=== PATIENT | female | born 1975 | race Caucasian/White ===

== ENCOUNTER 2021-07-02 15:02 | Inpatient (IN) ==
[2021-07-02] MEDS ORDERED: 0.9 % SODIUM CHLORIDE 1,000 ML IV ONE (16:07)
[2021-07-02 16:29] LABS: Appearance,Urine HAZY (Clear); Bacteria,Urine FEW /hpf (0); Bilirubin,Urine Negative (Negative); Color,Urine YELLOW; Culture Indicated,Urine yes; Glucose,Urine (UA) Negative (Negative); Ketones,Urine Negative (Negative); Leukocyte Esterase,Urine 25 /uL (Negative); Mucus,Urine FEW /hpf; Nitrate,Urine POS (Negative); Protein,Urine Negative (Negative); Specific Gravity,Urine 1.011 (1.000-1.035); Urine Hyaline Cast 12 /lph (0-2); Urine RBC 70 /hpf (0-3); Urine Squamous Epithelial Cell 2 /hpf (0-4); Urine WBC 33 /hpf (0-4); Urobilinogen,Urine Negative
[2021-07-02] MEDS ORDERED: PIPERACILLIN SODIUM/TAZOBACTAM 4.5 GM in DEXTROSE 5% IN WATER 50 ML IV ONE (17:00)
--- NOTE | 2021-07-02 17:47 | Emergency Department Note ---
HPI General Chief complaint: Weakness Stated complaint: lethergy, diaphoretic Time Seen by Provider: 07/02/21 16:54 Source: EMS Mode of arrival: EMS Limitations: altered mental status History of Present Illness HPI Narrative: Narrative: 45-year-old female with history of cerebral palsy presents for evaluation of lethargy from group home facility, reported onset today. No reported vital sign abnormalities. Patient is able to speak but minimally able to provide history. She does admit to urinary frequency. She denies chest pain or pressure or shortness of breath. She denies abdominal pain nausea or vomiting. She has mostly bedbound but by report normally alert oriented and overall well- appearing Related Data Home Medications Medication Instructions Recorded Confirmed fluticasone propionate 50 See Dose Instructions INTRANASAL 05/01/15 12/27/20 mcg/actuation nasal .COMPLEX g spray,suspension ibuprofen 800 mg tablet 800 mg PO .COMPLEX tab 05/01/15 12/27/20 omeprazole 20 mg capsule,delayed 20 mg PO QDAY cap 05/01/15 12/27/20 release ascorbate calcium (vitamin C) 500 500 mg PO QDAY 04/18/19 12/27/20 mg tablet cyclobenzaprine 5 mg tablet 5 mg PO QDAY tab 04/18/19 12/27/20 docusate sodium 100 mg capsule 100 mg PO BID 04/18/19 12/27/20 folic acid 800 mcg tablet 0.8 mg PO QDAY 04/18/19 12/27/20 lithium carbonate 300 mg 300 mg PO BID tab 04/18/19 12/27/20 tablet,extended release lubiprostone 24 mcg capsule 24 mcg PO BID 04/18/19 12/27/20 magnesium oxide 400 mg (241.3 mg 400 mg PO QDAY tab 04/18/19 12/27/20 magnesium) tablet meclizine 25 mg tablet 25 mg PO QDAY PRN 04/18/19 12/27/20 ondansetron 4 mg disintegrating 4 mg PO ONCE tab 04/18/19 12/27/20 tablet oxybutynin chloride 10 mg 10 mg PO QDAY 04/18/19 12/27/20 tablet,extended release 24 hr potassium chloride 20 mEq 20 meq PO QDAY 04/18/19 12/27/20 tablet,extended release pyridoxine (vitamin B6) PO 04/18/19 12/27/20 sennosides 8.6 mg tablet 8.6 mg PO ONCE PRN tab 04/18/19 12/27/20 sumatriptan succinate 50 mg tablet 50 mg PO ONCE PRN tab 04/18/19 12/27/20 topiramate 50 mg tablet 50 mg PO BID 04/18/19 12/27/20 torsemide 20 mg tablet 20 mg PO QDAY 04/18/19 12/27/20 zinc 50 mg tablet 50 mg PO QDAY 04/18/19 12/27/20 clonazepam 2 mg tablet 2 mg PO TID 05/17/19 12/27/20 levothyroxine 200 mcg capsule 200 mcg PO QDAY 05/17/19 12/27/20 oxycodone 10 mg tablet 10 mg PO QID tab 05/17/19 12/27/20 oxycodone 5 mg capsule 5 mg PO QDAY PRN cap 05/17/19 12/27/20 pregabalin 150 mg capsule 150 mg PO BID 05/17/19 12/27/20 quetiapine 400 mg tablet 400 mg PO QHS tab 05/17/19 12/27/20 Previous Rx's Medication Instructions Recorded fluoxetine 10 mg capsule 10 mg PO QPM #30 cap 06/21/19 fluoxetine 20 mg capsule 20 mg PO QAM #30 cap 06/21/19 Allergies Allergy/AdvReac Type Severity Reaction Status Date / Time adhesive tape Allergy Unknown Verified 11/27/19 15:36 baclofen Allergy Unknown Verified 11/27/19 15:36 ceftriaxone [From Rocephin] Allergy Unknown Verified 11/27/19 15:36 cefuroxime Allergy Unknown Unknown Verified 11/27/19 15:36 Erythromycin Base Allergy Unknown Unknown Verified 11/27/19 15:36 lidocaine Allergy Unknown Unknown Verified 11/27/19 15:36 methadone Allergy Unknown Verified 11/27/19 15:36 methocarbamol Allergy Unknown Unknown Verified 11/27/19 15:36 midazolam [From Versed] Allergy Unknown Verified 11/27/19 15:36 morphine Allergy Unknown Unknown Verified 11/27/19 15:36 risperidone [From Risperdal] Allergy Unknown Verified 11/27/19 15:36 Review of Systems ROS ROS Narrative: Narrative: Limitations: ROS unobtainable due to patients medical condition PFSH Narrative Patient History Narrative: Narrative: Medical/Surgical/Family History All Active Problems (Updated 07/02/21 @ 17:47 by Mamadou Anguiano DO) Urinary tract infection (Acute) Constipation (Chronic) Functional dyspepsia (Chronic) Amblyopia (Chronic) Migraine (Chronic) Personality disorder (Chronic) Panic disorder (Chronic) Major depressive disorder (Chronic) Anemia (Chronic) Pleurisy (Chronic) Open wound of left thigh (Chronic) Open wound of buttock (Chronic) Hypoxemia (Chronic) Low back pain (Chronic) Other streptococcus as the cause of diseases classified elsewhere (Chronic) Narcissistic personality disorder (Chronic) Anhedonia (Chronic) Pure hypercholesterolemia (Chronic) Bipolar disorder (Chronic) Noninfective gastroenteritis and colitis, unspecified (Chronic) Somatoform disorder, unspecified (Chronic) Adverse effect of other opioids, subsequent encounter (Chronic) Morbid obesity due to excess calories (Chronic) Cerebral palsy, unspecified (Chronic) Daytime sleepiness (Chronic) Laceration of left leg (Chronic) Vertigo (Chronic) Borderline personality disorder (Chronic) Somatic symptom disorder (Chronic) Fibromyalgia (Chronic) Dependence on wheelchair (Chronic) History of falling (Chronic) Edema (Chronic) Malaise and fatigue (Chronic) Chronic fatigue (Chronic) Dizziness and giddiness (Chronic) Spasm of muscle (Chronic) Pilonidal cyst without abscess (Chronic) Other injury of unspecified body region, initial encounter (Chronic) Contusion of shoulder (Chronic) Open wound (Chronic) Urination frequency (Chronic) Retention of urine (Chronic) Nausea and vomiting (Chronic) Irregular menstruation (Chronic) Calculus of gallbladder (Chronic) Upper respiratory infection (Chronic) Chronic rhinitis (Chronic) Pain in throat (Chronic) Sepsis (Chronic) Acute cholecystitis (Chronic) Ankle pain, right (Chronic) Knee pain, right (Chronic) Urinary incontinence (Chronic) Tobacco abuse (Chronic) Disorder of thyroid (Chronic) Muscle ache (Chronic) Migraine (Chronic) Insomnia (Chronic) Hyperthyroidism (Chronic) Hypertension, essential (Chronic) Heartburn (Chronic) Bursitis, trochanteric (Chronic 02/14/15) Fatigue (Chronic) Depressive disorder (Chronic) 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) Camarillo's palsy (Chronic) Arthritis (Chronic) Anxiety disorder (Chronic) Acid reflux (Chronic) Medical History (Updated 07/02/21 @ 17:47 by Mamadou Anguiano DO) Acid reflux Acute cholecystitis Adverse effect of other opioids, subsequent encounter Amblyopia Anemia Anhedonia Ankle pain, right Anxiety disorder Arthritis Camarillo's palsy infantile Bipolar disorder Borderline personality disorder Bursitis, trochanteric (02/14/15) Calculus of gallbladder Cerebral palsy, unspecified Chronic fatigue Chronic rhinitis Constipation Contusion of shoulder Daytime sleepiness Dependence on wheelchair Depressive disorder Disorder of thyroid Dizziness and giddiness Edema Fatigue Fibromyalgia Functional dyspepsia Heartburn History of falling Hypertension, essential Hyperthyroidism Hypoxemia Infantile cerebral palsy (02/14/15) Insomnia Irregular menstruation Knee pain, right Low back pain Major depressive disorder Malaise and fatigue Migraine Migraine Morbid obesity due to excess calories Muscle ache Narcissistic personality disorder Nausea and vomiting Noninfective gastroenteritis and colitis, unspecified Open wound Open wound of buttock Open wound of left thigh Other injury of unspecified body region, initial encounter Other streptococcus as the cause of diseases classified elsewhere Pain in throat Panic disorder Personality disorder Pilonidal cyst without abscess Pleurisy Pure hypercholesterolemia Retention of urine Sepsis Somatic symptom disorder Somatoform disorder, unspecified Spasm of muscle Tobacco abuse Upper respiratory infection Urinary incontinence Urination frequency Vertigo Surgical History No pertinent past surgical history Family History Mother Dementia Family history of malignant neoplasm Family history of arthritis Essential hypertension Acute myocardial infarction Father Acute myocardial infarction Social History Smoking Status: Current some day smoker Alcohol Intake Frequency: does not drink Substance Use: former substance user and marijuana Exam Narrative Narrative: Narrative: General Limitations: altered mental status General appearance: Present alert Head Head: Present atraumatic and normocephalic Eye Eye: Present normal appearance and EOMI ENT ENT: Present normal exam and mucous membranes dry Neck Neck: Present normal inspection and full ROM (Within the limitations of contracture with slight right sided preference) Chest Chest: Present normal inspection and symmetric chest wall rise Respiratory Respiratory: Present normal lung sounds bilaterally Cardiovascular Cardiovascular: Present regular rate and normal rhythm Adbominal Abdominal: Present soft; Absent tenderness Extremities Extremities: Present normal inspection; Absent full ROM (Limited range of motion but patient reports that this is chronic) Neurological Neurological: Present alert; Absent oriented X3 (Oriented to person and place) Psychiatric Psychiatric: Present normal affect, normal mood and poor eye contact Skin Skin: Present warm (WNL) and dry Course Vital Signs Vital signs: Vital Signs Temperature 97.9 F 07/02/21 15:03 Pulse Rate 84 07/02/21 15:03 Respiratory Rate 20 07/02/21 15:03 Blood Pressure 121/73 07/02/21 15:03 Pulse Oximetry (%) 94 07/02/21 15:03 Temperature 97.9 F 07/02/21 15:03 Pulse Rate 78 07/02/21 17:16 Respiratory Rate 17 07/02/21 17:16 Blood Pressure 124/70 07/02/21 17:16 Pulse Oximetry (%) 99 07/02/21 17:16 MDM MDM Narrative Medical decision making narrative: Narrative: Patient with slightly decreased mental status from her baseline, nonfocal, overall consistent with urinary tract infection and patient does endorse symptoms although appears to be a somewhat unreliable historian at this time. She was given IV antibiotics, based on culture from about 3 months ago with limited sensitivities and cephalosporin allergy, she was given Zosyn. Urine culture was sent.Plan was made to admit for further care Lab Data Labs: Lab Results 07/02/21 Range/Units 15:25 Urine Color Yellow Urine Appearance Hazy A (Clear) Urine pH 5.0 (5.0-9.0) Ur Specific [place] 1.011 (1.000-1.035) Urine Protein Negative (Negative) mg/dL Urine Glucose (UA) Negative (Negative) mg/dL Urine Ketones Negative (Negative) mg/dL Urine Occult Blood 0.20 (Negative) mg/dL Urine Nitrate Pos A (Negative) Urine Bilirubin Negative (Negative) mg/dL Urine Urobilinogen Negative mg/dL Ur Leukocyte Esterase 25 A (Negative) /uL Urine RBC 70 H (0-3) /hpf Urine WBC 33 H (0-4) /hpf Ur Squamous Epith Cells 2 (0-4) /hpf Urine Bacteria Few A (0) /hpf Hyaline Casts 12 H (0-2) /lph Urine Mucus Few A (None) /hpf Ur Culture Indicated? yes Discharge Plan Patient/Caregiver Discharge Instructions Pt seen by [facility]ANCH[facility] MANAGER/PA only: No Clinical Impression: Urinary tract infection Patient Disposition: [facility] Follow up with: Brad Beasley MD [Primary Care Provider] - Prescriptions: No Action levothyroxine 200 mcg capsule 200 mcg PO QDAY RF: 0 oxycodone 10 mg tablet 10 mg PO QID RF: 0 oxycodone 5 mg capsule 5 mg PO QDAY PRNRF: 0 quetiapine 400 mg tablet 400 mg PO QHS RF: 0 pregabalin [Lyrica] 150 mg capsule 150 mg PO BID RF: 0 clonazepam 2 mg tablet 2 mg PO TID RF: 0 fluoxetine [Prozac] 10 mg capsule 10 mg PO QPM Qty: 30 RF: 0 fluoxetine 20 mg capsule 20 mg PO QAM Qty: 30 RF: 0 ibuprofen 800 mg tablet 800 mg PO .COMPLEX RF: 0 omeprazole 20 mg capsule,delayed release(DR/EC) 20 mg PO QDAY RF: 0 fluticasone propionate 50 mcg/actuation spray,suspension See Dose Instructions mcg INTRANASAL .COMPLEX RF: 0 Amitiza 24 mcg capsule 24 mcg PO BID RF: 0 cyclobenzaprine 5 mg tablet 5 mg PO QDAY RF: 0 docusate sodium 100 mg capsule 100 mg PO BID RF: 0 folic acid 800 mcg tablet 0.8 mg PO QDAY RF: 0 lithium carbonate 300 mg tablet extended release 300 mg PO BID RF: 0 magnesium oxide [MagOx] 400 mg (241.3 mg magnesium) tablet 400 mg PO QDAY RF: 0 meclizine 25 mg tablet 25 mg PO QDAY PRNRF: 0 ondansetron 4 mg tablet,disintegrating 4 mg PO ONCE RF: 0 oxybutynin chloride 10 mg tablet extended release 24hr 10 mg PO QDAY RF: 0 potassium chloride 20 mEq tablet extended release 20 meq PO QDAY RF: 0 pyridoxine (vitamin B6) PO RF: 0 sennosides [senna] 8.6 mg tablet 8.6 mg PO ONCE PRNRF: 0 sumatriptan succinate 50 mg tablet 50 mg PO ONCE PRNRF: 0 topiramate 50 mg tablet 50 mg PO BID RF: 0 torsemide 20 mg tablet 20 mg PO QDAY RF: 0 ascorbate calcium (vitamin C) 500 mg tablet 500 mg PO QDAY RF: 0 zinc 50 mg tablet 50 mg PO QDAY RF: 0
[2021-07-02] MEDS ORDERED: MECLIZINE 25 MG PO PRN (18:43)
[2021-07-02] MEDS ORDERED: SENNOSIDES 1 TABLET PO PRN ×2 (18:43→20:25)
[2021-07-02] MEDS ORDERED: SUMAtriptan SUCCINATE 50 MG TABLET PO PRN ×2 (18:43→20:25)
[2021-07-02] MEDS ORDERED: IBUPROFEN 800 MG TABLET PO SCH (18:45)
--- NOTE | 2021-07-02 18:56 | Internal Med History&Physical ---
HPI History of Present Illness Patient information: Note initiated : 07/02/21 at 6:49 pm Service Date, if different from initiated Date: [] Patient: Galina Solorzano a 45 y/o F admitted on for lethergy, diaphoretic. Chief Complaint: [UTI] History of present illness: Ms. Solorzano is a 45 year old F history of cerebral palsy, hypothyroidism, recurrent UTI, presenting with 1 day history of lethargy. Last episode of urinary tract infection was about a month ago. Patient is a [facility] resident and today she was noted by the nursing staff to be lethargic and she was being sent to our ED for further evaluations. Vital signs upon ED presentations were within normal limits. CBC and CMP pending. Urinalysis suggest the presence of urinary tract infections. Rest of the history is limited by the patient's clinical situations. Review of Systems ROS unobtainable: due to mental status PFSH PFSH All Active Problems (Updated 07/02/21 @ 18:54 by Louis Anderson MD) Hypothyroidism (Acute) Urinary tract infection (Acute) Constipation (Chronic) Functional dyspepsia (Chronic) Amblyopia (Chronic) Migraine (Chronic) Personality disorder (Chronic) Panic disorder (Chronic) Major depressive disorder (Chronic) Anemia (Chronic) Pleurisy (Chronic) Open wound of left thigh (Chronic) Open wound of buttock (Chronic) Hypoxemia (Chronic) Low back pain (Chronic) Other streptococcus as the cause of diseases classified elsewhere (Chronic) Narcissistic personality disorder (Chronic) Anhedonia (Chronic) Pure hypercholesterolemia (Chronic) Bipolar disorder (Chronic) Noninfective gastroenteritis and colitis, unspecified (Chronic) Somatoform disorder, unspecified (Chronic) Adverse effect of other opioids, subsequent encounter (Chronic) Morbid obesity due to excess calories (Chronic) Cerebral palsy, unspecified (Chronic) Daytime sleepiness (Chronic) Laceration of left leg (Chronic) Vertigo (Chronic) Borderline personality disorder (Chronic) Somatic symptom disorder (Chronic) Fibromyalgia (Chronic) Dependence on wheelchair (Chronic) History of falling (Chronic) Edema (Chronic) Malaise and fatigue (Chronic) Chronic fatigue (Chronic) Dizziness and giddiness (Chronic) Spasm of muscle (Chronic) Pilonidal cyst without abscess (Chronic) Other injury of unspecified body region, initial encounter (Chronic) Contusion of shoulder (Chronic) Open wound (Chronic) Urination frequency (Chronic) Retention of urine (Chronic) Nausea and vomiting (Chronic) Irregular menstruation (Chronic) Calculus of gallbladder (Chronic) Upper respiratory infection (Chronic) Chronic rhinitis (Chronic) Pain in throat (Chronic) Sepsis (Chronic) Acute cholecystitis (Chronic) Ankle pain, right (Chronic) Knee pain, right (Chronic) Urinary incontinence (Chronic) Tobacco abuse (Chronic) Disorder of thyroid (Chronic) Muscle ache (Chronic) Migraine (Chronic) Insomnia (Chronic) Hyperthyroidism (Chronic) Hypertension, essential (Chronic) Heartburn (Chronic) Bursitis, trochanteric (Chronic 02/14/15) Fatigue (Chronic) Depressive disorder (Chronic) 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) Camarillo's palsy (Chronic) Arthritis (Chronic) Anxiety disorder (Chronic) Acid reflux (Chronic) Medical History (Updated 07/02/21 @ 18:54 by Louis Anderson MD) Acid reflux Acute cholecystitis Adverse effect of other opioids, subsequent encounter Amblyopia Anemia Anhedonia Ankle pain, right Anxiety disorder Arthritis Camarillo's palsy infantile Bipolar disorder Borderline personality disorder Bursitis, trochanteric (02/14/15) Calculus of gallbladder Cerebral palsy, unspecified Chronic fatigue Chronic rhinitis Constipation Contusion of shoulder Daytime sleepiness Dependence on wheelchair Depressive disorder Disorder of thyroid Dizziness and giddiness Edema Fatigue Fibromyalgia Functional dyspepsia Heartburn History of falling Hypertension, essential Hyperthyroidism Hypoxemia Infantile cerebral palsy (02/14/15) Insomnia Irregular menstruation Knee pain, right Low back pain Major depressive disorder Malaise and fatigue Migraine Migraine Morbid obesity due to excess calories Muscle ache Narcissistic personality disorder Nausea and vomiting Noninfective gastroenteritis and colitis, unspecified Open wound Open wound of buttock Open wound of left thigh Other injury of unspecified body region, initial encounter Other streptococcus as the cause of diseases classified elsewhere Pain in throat Panic disorder Personality disorder Pilonidal cyst without abscess Pleurisy Pure hypercholesterolemia Retention of urine Sepsis Somatic symptom disorder Somatoform disorder, unspecified Spasm of muscle Tobacco abuse Upper respiratory infection Urinary incontinence Urination frequency Vertigo Surgical History No pertinent past surgical history Family History Mother Dementia Family history of malignant neoplasm Family history of arthritis Essential hypertension Acute myocardial infarction Father Acute myocardial infarction Social History (Updated 05/17/19 @ 16:30 by Cris Lerner DO) marital status: single alcohol intake frequency: does not drink substance use type: former substance user and marijuana MEDS/ALLERGIES Home Medications and Allergies Home Medications Medication Instructions Recorded Confirmed Type fluticasone propionate 50 50 mcg INTRANASAL DAILY g 05/01/15 07/02/21 History mcg/actuation nasal spray,suspension ibuprofen 800 mg tablet 800 mg PO .COMPLEX tab 05/01/15 07/02/21 History omeprazole 20 mg capsule,delayed 20 mg PO QDAY cap 05/01/15 07/02/21 History release ascorbate calcium (vitamin C) 500 500 mg PO QDAY 04/18/19 07/02/21 History mg tablet cyclobenzaprine 5 mg tablet 5 mg PO QDAY tab 04/18/19 07/02/21 History docusate sodium 100 mg capsule 100 mg PO BID 04/18/19 07/02/21 History folic acid 800 mcg tablet 0.8 mg PO QDAY 04/18/19 07/02/21 History lithium carbonate 300 mg 300 mg PO BID tab 04/18/19 07/02/21 History tablet,extended release magnesium oxide 400 mg (241.3 mg 400 mg PO QDAY tab 04/18/19 07/02/21 History magnesium) tablet meclizine 25 mg tablet 25 mg PO QDAY PRN 04/18/19 07/02/21 History ondansetron 4 mg disintegrating 4 mg PO ONCE tab 04/18/19 07/02/21 History tablet oxybutynin chloride 10 mg 10 mg PO QDAY 04/18/19 07/02/21 History tablet,extended release 24 hr potassium chloride 20 mEq 20 meq PO QDAY 04/18/19 07/02/21 History tablet,extended release sennosides 8.6 mg tablet 8.6 mg PO ONCE PRN tab 04/18/19 07/02/21 History sumatriptan succinate 50 mg tablet 50 mg PO ONCE PRN tab 04/18/19 07/02/21 History topiramate 50 mg tablet 50 mg PO BID 04/18/19 07/02/21 History torsemide 20 mg tablet 20 mg PO QDAY 04/18/19 07/02/21 History zinc 50 mg tablet 50 mg PO QDAY 04/18/19 07/02/21 History clonazepam 2 mg tablet 2 mg PO TID 05/17/19 07/02/21 History levothyroxine 200 mcg capsule 200 mcg PO QDAY 05/17/19 07/02/21 History oxycodone 10 mg tablet 10 mg PO QID tab 05/17/19 07/02/21 History oxycodone 5 mg capsule 5 mg PO QDAY PRN cap 05/17/19 07/02/21 History pregabalin 150 mg capsule 150 mg PO BID 05/17/19 07/02/21 History quetiapine 400 mg tablet 400 mg PO QHS tab 05/17/19 07/02/21 History alendronate 70 mg PO MONTHLY 07/02/21 07/02/21 History escitalopram oxalate 20 mg PO DAILY 07/02/21 07/02/21 History Allergies Allergy/AdvReac Type Severity Reaction Status Date / Time adhesive tape Allergy Unknown Verified 11/27/19 15:36 baclofen Allergy Unknown Verified 11/27/19 15:36 ceftriaxone [From Rocephin] Allergy Unknown Verified 11/27/19 15:36 cefuroxime Allergy Unknown Unknown Verified 11/27/19 15:36 Erythromycin Base Allergy Unknown Unknown Verified 11/27/19 15:36 lidocaine Allergy Unknown Unknown Verified 11/27/19 15:36 methadone Allergy Unknown Verified 11/27/19 15:36 methocarbamol Allergy Unknown Unknown Verified 11/27/19 15:36 midazolam [From Versed] Allergy Unknown Verified 11/27/19 15:36 morphine Allergy Unknown Unknown Verified 11/27/19 15:36 risperidone [From Risperdal] Allergy Unknown Verified 11/27/19 15:36 EXAM Constitutional Vitals: Temp Pulse Resp BP Pulse Ox 36.6 C 73 16 131/80 100 07/02/21 15:03 07/02/21 18:31 07/02/21 18:31 07/02/21 18:31 07/02/21 18:31 General appearance: cooperative and no acute distress Head Head exam: Present atraumatic and normocephalic Eye Eye exam: Present EOMI and PERRL ENT ENT exam: Present mucous membranes moist, normal exam and normal external ear exam Neck Neck exam: Present normal inspection; Absent lymphadenopathy, tenderness and thyromegaly Respiratory Respiratory exam: Absent accessory muscle use, respiratory distress and wheezes Cardiovascular Cardiovascular exam: Present normal rate and rhythm; Absent JVD GI/Abdominal GI/Abdominal exam: Present normal bowel sounds and soft; Absent organomegaly and tenderness Extremities Exam Extremities exam: Present full ROM, normal capillary refill and normal inspection; Absent tenderness Neurological Exam Neurological exam: Present altered and CN II-XII intact; Absent motor sensory deficit and oriented X3 Additional comments: oriented X1 to person only Psychiatric Psychiatric exam: Present normal affect and normal mood; Absent anxious and depressed Skin Skin exam: Present dry and intact DATA Data Completed and Pending Labs: Labs from last 24 hours 07/02/21 07/02/21 07/02/21 18:28 17:47 15:25 WBC Pending RBC Pending Hgb Pending Hct Pending MCV Pending MCH Pending MCHC Pending RDW Pending Plt Count Pending MPV Pending Neut % (Auto) Pending Sodium Pending Potassium Pending Chloride Pending Carbon Dioxide Pending Anion Gap Pending BUN Pending Creatinine Pending GFR Calculation Pending Glucose Pending Calcium Pending Total Bilirubin Pending AST Pending ALT Pending Alkaline Phosphatase Pending Total Protein Pending Albumin Pending Globulin Pending Albumin/Globulin Ratio Pending Urine Color Yellow Urine Appearance Hazy A Urine pH 5.0 Ur Specific [place] 1.011 Urine Protein Negative Urine Glucose (UA) Negative Urine Ketones Negative Urine Occult Blood 0.20 Urine Nitrate Pos A Urine Bilirubin Negative Urine Urobilinogen Negative Ur Leukocyte Esterase 25 A Urine RBC 70 H Urine WBC 33 H Ur Squamous Epith Cells 2 Urine Bacteria Few A Hyaline Casts 12 H Urine Mucus Few A Ur Culture Indicated? yes A/P Assessment and plan (1) Urinary tract infection: Status: Acute Qualifiers: Hematuria presence: without hematuria Urinary tract infection type: acute cystitis Qualified Code(s): N30.00 - Acute cystitis without hematuria (2) Cerebral palsy, unspecified: Status: Chronic (3) Acid reflux: Status: Chronic (4) Hypothyroidism: Status: Acute Narrative A/P Narrative: Assessment and plan: 1. Urinary tract infections: Inpatient MedSurg Due to extended list of allergy profile as well as recurrent episode of UTI with multi resistance, will start with Zosyn Blood culture Urine culture Serial lactic acid Procalcitonin CBC with auto differential in the morning to trend WBC Tylenol as needed fever 2. History of cerebral palsy: Continue Topamax for seizure prophylaxis 3. History of hypothyroidism: Continue thyroid replacement therapy 4. History of reflux: Continue oral PPI from home regiment GI prophylaxis: Continue oral PPI from home regiment DVT prophylaxis: Lovenox CODE STATUS: Full code Prognosis: Stable Dispositions: Inpatient MedSurg Time Spent With Patient Time: Total time spent is greater than 50% in coordination of care (as documente d) at patient's floor/unit and/or counseling patient: Total time spent with greater than 50% in coordination of care (as documented) at patient's floor/unit and/or counseling patient:: 25 - 35 minutes
[2021-07-02 19:32] LABS: ALT/SGPT 15 U/L (<40); AST/SGOT 13 U/L (<32); Albumin 2.9 gm/dL (3.2-5.2); Albumin/Globulin Ratio 0.9 (1.0-2.3); Alkaline Phosphatase 169 U/L (39-117); Bilirubin,Total 0.2 mg/dL (0.1-1.0); Blood Urea Nitrogen 12 mg/dL (6-20); Calcium 8.5 mg/dL (8.6-10.4); Carbon Dioxide 23 mmol/L (22-30); Chloride 107 mmol/L (96-108); Globulin 3.2 gm/dL (2.2-3.7); Glomerular Filtration Rate 105; Glucose 93 mg/dL (70-105)
[2021-07-02 19:46] LABS: Basophils # (Auto) 0.02 K/mcL (0.00-0.30); Basophils % (Auto) 0.3 % (0.0-2.0); Eosinophils # (Auto) 0.17 K/mcL (0.00-0.70); Eosinophils % (Auto) 2.4 % (0.0-7.0); Hematocrit 27.7 % (34.1-44.9); Hemoglobin 7.6 g/dL (11.2-15.7); Lymphocytes # (Auto) 2.18 K/mcL (1.50-4.80); Lymphocytes % (Auto) 30.6 % (15.5-49.0); Mean Cell Volume 115.9 fL (80.0-100.0); Mean Corpuscular HGB Conc 27.4 g/dL (31.0-36.0); Mean Platelet Volume 11.4 fL (7.4-10.4); Monocytes # (Auto) 0.95 K/mcL (0.10-0.90); Monocytes % (Auto) 13.3 % (1.0-12.0); Neutrophils % (Auto) 53.4 % (38.0-78.0); Platelet Count 197 K/mcL (140-440); RBC 2.39 M/mcL (3.59-5.38); Red Cell Distribution Width 20.3 % (11.5-14.5); WBC 7.1 K/mcL (4.5-11.0)
[2021-07-02] MEDS ORDERED: ONDANSETRON 4 MG/2 ML VIAL IV PRN (20:25)
[2021-07-02] MEDS ORDERED: ZOLPIDEM 5 MG TABLET PO PRN (20:25)
[2021-07-02] MEDS ORDERED: OXYCODONE 5 MG PO PRN (20:25)
[2021-07-02] MEDS ORDERED: ACETAMINOPHEN 325 MG TABLET PO PRN (20:25)
[2021-07-02] MEDS ORDERED: MECLIZINE 25 MG TABLET PO PRN (20:39)
[2021-07-02] MEDS ORDERED: PREGABALIN 150 MG CAPSULE PO SCH (21:00)
[2021-07-02] MEDS ORDERED: DOCUSATE SODIUM 100 MG CAPSULE PO SCH ×2 (21:00)
[2021-07-02] MEDS ORDERED: QUETIAPINE 400 MG PO SCH (21:00)
[2021-07-02] MEDS ORDERED: TOPIRAMATE 50 MG TABLET PO SCH (21:00)
[2021-07-02] MEDS ORDERED: NON FORMULARY MEDICATION 1 DOSE MISCELL (Oxycodone 10 mg tablet) PO SCH (21:00)
[2021-07-02] MEDS ORDERED: CLONAZEPAM 2 MG PO SCH (21:00)
[2021-07-02] MEDS: TOPIRAMATE 25 MG TABLET PO SCH (22:51)
[2021-07-02] MEDS: LITHIUM CARBONATE 150 MG CAPSULE PO SCH (22:51)
[2021-07-02] MEDS: QUEtiapine 100 MG TABLET PO SCH (22:51)
[2021-07-02] MEDS: clonazePAM 1 MG TABLET PO SCH (22:51)
[2021-07-02] MEDS: DOCUSATE SODIUM 100 MG CAPSULE PO SCH (22:52)
[2021-07-02] MEDS: SENNOSIDES 1 TABLET PO SCH (22:52)
[2021-07-02] MEDS: PREGABALIN 150 MG CAPSULE PO SCH (22:52)
[2021-07-02] MEDS: 0.9 % SODIUM CHLORIDE 10 ML SYRINGE IV SCH (22:53)
[2021-07-02] MEDS: oxyCODONE HCL 5 MG TABLET PO PRN (22:55)
[2021-07-03] MEDS: PIPERACILLIN SODIUM/TAZOBACTAM 3.375 GM in DEXTROSE 5% IN WATER 50 ML IV SCH ×4 (00:12→18:03)
[2021-07-03] MEDS: 0.9 % SODIUM CHLORIDE 10 ML SYRINGE IV SCH ×3 (05:42→19:00)
[2021-07-03] MEDS: LEVOTHYROXINE 100 MCG TABLET PO SCH (07:32)
[2021-07-03] MEDS: POTASSIUM CHLORIDE 20 MEQ TABLET PO SCH (07:32)
[2021-07-03] MEDS: IBUPROFEN 800 MG TABLET PO SCH ×3 (07:33→17:26)
[2021-07-03] MEDS: LITHIUM CARBONATE 150 MG CAPSULE PO SCH ×2 (08:26→20:39)
[2021-07-03] MEDS: OXYBUTYNIN CHLORIDE 5 MG TABLET PO SCH (08:27)
[2021-07-03] MEDS: TORSEMIDE 10 MG TABLET PO SCH (08:27)
[2021-07-03] MEDS: PREGABALIN 150 MG CAPSULE PO SCH ×2 (08:28→20:39)
[2021-07-03] MEDS: ZINC SULFATE 50 MG CAPSULE PO SCH (08:28)
[2021-07-03] MEDS: ASCORBIC ACID 500 MG TABLET PO SCH (08:28)
[2021-07-03] MEDS: ESCITALOPRAM 20 MG TABLET PO SCH (08:28)
[2021-07-03] MEDS: TOPIRAMATE 25 MG TABLET PO SCH ×2 (08:28→20:40)
[2021-07-03] MEDS: OMEPRAZOLE 20 MG CAPSULE PO SCH (08:28)
[2021-07-03] MEDS: clonazePAM 1 MG TABLET PO SCH ×3 (08:29→20:41)
[2021-07-03] MEDS: FOLIC ACID 1 MG TABLET PO SCH (08:29)
[2021-07-03] MEDS: MAGNESIUM OXIDE 400 MG TABLET PO SCH (08:29)
[2021-07-03] MEDS: FLUTICASONE PROPIONATE SPRAY.NAS NS SCH (08:30)
[2021-07-03] MEDS: DOCUSATE SODIUM 100 MG CAPSULE PO SCH ×2 (08:30→20:41)
[2021-07-03] MEDS: CYCLOBENZAPRINE 10 MG TABLET PO SCH (08:30)
[2021-07-03] MEDS ORDERED: FLUTICASONE PROPIONATE SPRAY.NAS NS SCH (09:00)
[2021-07-03] MEDS ORDERED: ESCITALOPRAM 20 MG TABLET PO SCH (09:00)
[2021-07-03] MEDS ORDERED: OXYBUTYNIN CHLORIDE 10 MG PO SCH (09:00)
[2021-07-03] MEDS ORDERED: TORSEMIDE 20 MG TABLET PO SCH (09:00)
[2021-07-03] MEDS ORDERED: NON FORMULARY MEDICATION 1 DOSE MISCELL (Potassium Chloride 20 mEq tablet extended release PO SCH (09:00)
[2021-07-03] MEDS ORDERED: LEVOTHYROXINE 200 MCG PO SCH (09:00)
[2021-07-03] MEDS ORDERED: CYCLOBENZAPRINE 5 MG PO SCH (09:00)
[2021-07-03] MEDS ORDERED: OMEPRAZOLE 20 MG CAPSULE PO SCH (09:00)
[2021-07-03] MEDS ORDERED: MAGNESIUM OXIDE 400 MG TABLET PO SCH (09:00)
[2021-07-03] MEDS ORDERED: ENOXAPARIN 40 MG/0.4 ML SYRINGE SQ SCH (09:00)
[2021-07-03] MEDS ORDERED: ALENDRONATE SODIUM 70 MG TABLET PO SCH ×2 (09:00)
[2021-07-03 09:52] LABS: ALT/SGPT 14 U/L (<40); AST/SGOT 15 U/L (<32); Albumin 2.8 gm/dL (3.2-5.2); Alkaline Phosphatase 157 U/L (39-117); Bilirubin,Total 0.2 mg/dL (0.1-1.0); Blood Urea Nitrogen 10 mg/dL (6-20); Calcium 8.3 mg/dL (8.6-10.4); Carbon Dioxide 23 mmol/L (22-30); Chloride 106 mmol/L (96-108); Globulin 2.9 gm/dL (2.2-3.7); Glomerular Filtration Rate 110; Glucose 85 mg/dL (70-105)
[2021-07-03 09:55] LABS: Basophils # (Auto) 0.02 K/mcL (0.00-0.30); Basophils % (Auto) 0.3 % (0.0-2.0); Eosinophils # (Auto) 0.25 K/mcL (0.00-0.70); Eosinophils % (Auto) 4.3 % (0.0-7.0); Hematocrit 23.9 % (34.1-44.9); Hemoglobin 6.6 g/dL (11.2-15.7); Lymphocytes # (Auto) 1.99 K/mcL (1.50-4.80); Lymphocytes % (Auto) 34.5 % (15.5-49.0); Mean Cell Volume 113.3 fL (80.0-100.0); Mean Corpuscular HGB Conc 27.6 g/dL (31.0-36.0); Mean Platelet Volume 11.6 fL (7.4-10.4); Monocytes # (Auto) 0.54 K/mcL (0.10-0.90); Monocytes % (Auto) 9.4 % (1.0-12.0); Neutrophils % (Auto) 51.5 % (38.0-78.0); Platelet Count 188 K/mcL (140-440); RBC 2.11 M/mcL (3.59-5.38); Red Cell Distribution Width 19.9 % (11.5-14.5); WBC 5.8 K/mcL (4.5-11.0)
[2021-07-03] MEDS ORDERED: 0.9 % SODIUM CHLORIDE 250 ML IV SCH (10:15)
--- NOTE | 2021-07-03 12:15 | Internal Med Progress Note ---
SUBJECTIVE Subjective Patient information: Note initiated : 07/03/21 at 12:11 pm Service Date, if different from initiated Date: [] Patient: Galina Solorzano a 45 y/o F admitted on 07/02/21 for lethergy, diaphoretic. Chief Complaint: [UTI, anemia] Interval history: History of present illness: Ms. Solorzano is a 45 year old F history of cerebral palsy, hypothyroidism, recurrent UTI, presenting with 1 day history of lethargy. Last episode of urinary tract infection was about a month ago. Patient is a [facility] resident and today she was noted by the nursing staff to be lethargic and she was being sent to our ED for further evaluations. Vital signs upon ED presentations were within normal limits. CBC and CMP pending. Urinalysis suggest the presence of urinary tract infections. Rest of the history is limited by the patient's clinical situations. 07/03: Afebrile overnight. Hemoglobin 7.6-->6.6. Blood and urine cultures no growth to date. No other major overnight events. Subjective not obtained due to clinical situations. Constitutional Vitals: Vital Signs Temp Pulse Resp BP Pulse Ox 35.9 C L 73 16 96/63 96 07/03/21 08:00 07/03/21 08:00 07/03/21 08:00 07/03/21 08:00 07/03/21 08:00 Period Temp Pulse Resp BP Sys/Albert Pulse Ox Last 24 Hr 35.9 C-36.6 C 69-84 13-20 89-144/50-124 89-100 Intake and Output 07/02/21 07/03/21 07/03/21 21:59 05:59 13:59 Intake Total 1050 450 100 Balance 1050 450 100 Weight 100.698 kg Intake & Output: Intake & Output 07/02/21 07/03/21 07/03/21 21:59 05:59 13:59 Intake Total 1050 450 100 Balance 1050 450 100 Weight 100.698 kg Intake: IV 1050 50 100 Sodium Chloride 0.9% 1,000 ml @ 1000 Wide Open IV B[facility]US ONE Rx#: [id number] Zosyn 3.375 gm In Dextrose 5% 50 100 in Water 50 ml @ 100 mls/hr IV Q6H [facility] Rx#:[id number] Zosyn 4.5 gm In Dextrose 5% in 50 Water 50 ml @ 100 mls/hr IV ONCE ONE Rx#:[id number] Oral 400 Other: Urine Appearance Straight Cloudy Urine Color Straight Dark Yellow Urine Odor Straight Foul Stool Size Moderate Stool Color Brown Yellow Stool Consistency Loose General appearance: morbidly obese and no acute distress; no cooperative Exam: lethargic Head Head exam: Present atraumatic and normocephalic Eye Eye exam: Present EOMI and PERRL ENT ENT exam: Present mucous membranes moist, normal exam and normal external ear ex am Neck Neck exam: Present normal inspection; Absent lymphadenopathy, tenderness and thyromegaly Respiratory Respiratory exam: Absent accessory muscle use, respiratory distress and wheezes Cardiovascular Cardiovascular exam: Present normal rate and rhythm; Absent JVD GI/Abdominal GI/Abdominal exam: Present normal bowel sounds and soft; Absent organomegaly and tenderness Extremities Exam Extremities exam: Present full ROM, normal capillary refill and normal in spection; Absent tenderness Neurological Exam Neurological exam: Present altered, CN II-XII intact and motor sensory deficit; Absent oriented X3 Psychiatric Psychiatric exam: Present normal affect and normal mood; Absent anxious and depressed Skin Skin exam: Present dry; Absent intact Additional comments: Sacral wound vac in place OBJ DATA Labs CBC & Chem 7: 07/03/21 05:30 07/03/21 05:30 Labs: Abnormal Lab Results 07/03/21 07/03/21 07/02/21 05:30 05:30 18:28 RBC 2.11 L Hgb 6.6 L* Hct 23.9 L MCV 113.3 H MCHC 27.6 L RDW 19.9 H MPV 11.6 H Snyder % (Auto) Snyder # (Auto) Anion Gap 6.0 L 7.0 L Calcium 8.3 L 8.5 L Alkaline Phosphatase 157 H 169 H Total Protein 5.7 L Albumin 2.8 L 2.9 L Albumin/Globulin Ratio 0.9 L Procalcitonin Urine Appearance Urine Nitrate Ur Leukocyte Esterase Urine RBC Urine WBC Urine Bacteria Hyaline Casts Urine Mucus 07/02/21 07/02/21 07/02/21 17:48 17:47 15:25 RBC 2.39 L Hgb 7.6 L Hct 27.7 L MCV 115.9 H MCHC 27.4 L RDW 20.3 H MPV 11.4 H Snyder % (Auto) 13.3 H Snyder # (Auto) 0.95 H Anion Gap Calcium Alkaline Phosphatase Total Protein Albumin Albumin/Globulin Ratio Procalcitonin 0.27 H Urine Appearance Hazy A Urine Nitrate Pos A Ur Leukocyte Esterase 25 A Urine RBC 70 H Urine WBC 33 H Urine Bacteria Few A Hyaline Casts 12 H Urine Mucus Few A Meds: Medications Acetaminophen (Acetaminophen 325 Mg Tablet) 650 mg PO Q6HP PRN; Protocol PRN Reason: Per Pain Protocol/Fever > 101 Ascorbic Acid (Ascorbic Acid 500 Mg Tablet) 500 mg PO DAILY [facility] Last Admin: 07/03/21 08:28 Dose: 500 mg Documented by: Clonazepam (Clonazepam 1 Mg Tablet) 2 mg PO TID [facility] Last Admin: 07/03/21 08:29 Dose: 2 mg Documented by: Cyclobenzaprine HCl (Cyclobenzaprine 10 Mg Tablet) 5 mg PO QDAY [facility] Last Admin: 07/03/21 08:30 Dose: 5 mg Documented by: Docusate Sodium (Docusate Sodium 100 Mg Capsule) 100 mg PO BID [facility] Last Admin: 07/03/21 08:30 Dose: Not Given Documented by: Enoxaparin Sodium (Enoxaparin 40 Mg/0.4 Ml Syringe) 40 mg SQ DAILY [facility] Last Admin: 07/03/21 08:29 Dose: 40 mg Documented by: Escitalopram Oxalate (Escitalopram 20 Mg Tablet) 20 mg PO DAILY [facility] Last Admin: 07/03/21 08:28 Dose: 20 mg Documented by: Fluticasone Propionate (Fluticasone Propionate [place].Papa) 1 spray NS DAILY [facility] Last Admin: 07/03/21 08:30 Dose: Not Given Documented by: Folic Acid (Folic Acid 1 Mg Tablet) 1 mg PO DAILY [facility] Last Admin: 07/03/21 08:29 Dose: 1 mg Documented by: Piperacillin Sod/Tazobactam (Sod 3.375 gm/ Dextrose) 50 mls @ 100 mls/hr IV Q6H [facility]; Protocol Last Infusion: 07/03/21 11:40 Dose: Infused Documented by: Sodium Chloride (Sodium Chloride 0.9%) 250 mls @ 20 mls/hr IV .[id number] [facility] Stop: 07/03/21 22:44 Ibuprofen (Ibuprofen 800 Mg Tablet) 800 mg PO TIDCC [facility]; Protocol Last Admin: 07/03/21 11:43 Dose: Not Given Documented by: Levothyroxine Sodium (Levothyroxine 100 Mcg Tablet) 200 mcg PO ACB [facility] Last Admin: 07/03/21 07:32 Dose: 200 mcg Documented by: [place] Carbonate ([place] Carbonate 150 Mg Capsule) 300 mg PO BID [facility] Last Admin: 07/03/21 08:26 Dose: 300 mg Documented by: Magnesium Oxide (Magnesium Oxide 400 Mg Tablet) 400 mg PO QDAY [facility] Last Admin: 07/03/21 08:29 Dose: 400 mg Documented by: Meclizine HCl (Meclizine 25 Mg Tablet) 25 mg PO DAILYP PRN PRN Reason: Vertigo Omeprazole (Omeprazole 20 Mg Capsule) 20 mg PO QDAY [facility] Last Admin: 07/03/21 08:28 Dose: 20 mg Documented by: Ondansetron HCl (Ondansetron 4 Mg/2 Ml Vial) 4 mg IV Q6HP PRN PRN Reason: Nausea And Vomiting Oxybutynin Chloride (Oxybutynin Chloride 5 Mg Tablet) 10 mg PO QDAY [facility] Last Admin: 07/03/21 08:27 Dose: 10 mg Documented by: Oxycodone HCl (Oxycodone Hcl 5 Mg Tablet) 10 mg PO QIDP PRN PRN Reason: Pain Last Admin: 07/02/21 22:55 Dose: 10 mg Documented by: Potassium Chloride (Potassium Chloride 20 Meq Tablet) [facility] Last Admin: 07/03/21 07:32 Dose: 20 meq Documented by: Pregabalin (Pregabalin 150 Mg Capsule) 150 mg PO BID [facility] Last Admin: 07/03/21 08:28 Dose: 150 mg Documented by: Quetiapine Fumarate (Quetiapine 100 Mg Tablet) [address] [facility] Last Admin: 07/02/21 22:51 Dose: 400 mg Documented by: Senna (Sennosides 1 Tablet) [address] [facility] Last Admin: 07/02/21 22:52 Dose: Not Given Documented by: Sodium Chloride (0.9 % Sodium Chloride 10 Ml Syringe) 10 ml IV Q8 [facility] Last Admin: 07/03/21 05:42 Dose: 10 ml Documented by: Sumatriptan Succinate (Sumatriptan Succinate 50 Mg Tablet) 50 mg PO ONCE PRN PRN Reason: Headache Topiramate (Topiramate 25 Mg Tablet) 50 mg PO BID [facility] Last Admin: 07/03/21 08:28 Dose: 50 mg Documented by: Torsemide (Torsemide 10 Mg Tablet) 20 mg PO DAILY [facility] Last Admin: 07/03/21 08:27 Dose: 20 mg Documented by: Zinc Sulfate (Zinc Sulfate 50 Mg Capsule) 50 mg PO DAILY [facility] Last Admin: 07/03/21 08:28 Dose: 50 mg Documented by: Zolpidem Tartrate (Zolpidem 5 Mg Tablet) 5 mg PO HSP PRN PRN Reason: Insomnia A/P Assessment and plan (1) Urinary tract infection: Status: Acute Qualifiers: Hematuria presence: without hematuria Urinary tract infection type: acute cystitis Qualified Code(s): N30.00 - Acute cystitis without hematuria (2) Cerebral palsy, unspecified: Status: Chronic (3) Acid reflux: Status: Chronic (4) Hypothyroidism: Status: Acute Narrative A/P Narrative: Assessment and plan: 1. Urinary tract infections: Inpatient MedSurg Due to extended list of allergy profile as well as recurrent episode of UTI with multi resistance, will start with Zosyn Blood culture, no growth to date Urine culture, no growth to date Serial lactic acid Procalcitonin 0.27 CBC with auto differential in the morning to trend WBC Tylenol as needed fever 2. History of cerebral palsy: Continue Topamax for seizure prophylaxis 3. History of hypothyroidism: Continue thyroid replacement therapy 4. History of reflux: Continue oral PPI from home regiment 5. Sacral decubitus ulcer: Continue wound vac and routine wound care as per wound care team 6. Macrocytic anemia: Transfuse 2 unit pRBC Repeat cbc w/ auto diff in the morning to trend H/H GI prophylaxis: Continue oral PPI from home regiment DVT prophylaxis: SCDs CODE STATUS: Full code Prognosis: Stable Dispositions: Inpatient MedSurg Time Spent With Patient Time: Total time spent is greater than 50% in coordination of care (as documented) at patient's floor/unit and/or counseling patient: QUALITY VTE Deep Vein Thrombosis/Pulmonary Embolism Present on Admission: No
[2021-07-03] MEDS ORDERED: SODIUM CHLORIDE IV SCH (12:45)
[2021-07-03] MEDS ORDERED: COLD IV SCH (12:45)
[2021-07-03] MEDS ORDERED: 0.9 % SODIUM CHLORIDE 500 ML IV ONE (13:15)
[2021-07-03] MEDS: SENNOSIDES 1 TABLET PO SCH (20:38)
[2021-07-03] MEDS: QUEtiapine 100 MG TABLET PO SCH (20:38)
[2021-07-03] MEDS: LOPERAMIDE 2 MG CAPSULE PO PRN (20:40)
[2021-07-03] MEDS: LOPERAMIDE 2 MG CAPSULE PO ONE ×2 (20:42→21:28)
[2021-07-04] MEDS: 0.9 % SODIUM CHLORIDE 10 ML SYRINGE IV SCH ×4 (00:01→20:31)
[2021-07-04] MEDS: PIPERACILLIN SODIUM/TAZOBACTAM 3.375 GM in DEXTROSE 5% IN WATER 50 ML IV SCH ×4 (06:03→17:25)
[2021-07-04 08:01] LABS: Basophils # (Auto) 0.04 K/mcL (0.00-0.30); Basophils % (Auto) 0.5 % (0.0-2.0); Eosinophils # (Auto) 0.43 K/mcL (0.00-0.70); Eosinophils % (Auto) 5.3 % (0.0-7.0); Hematocrit 34.2 % (34.1-44.9); Hemoglobin 10.7 g/dL (11.2-15.7); Lymphocytes # (Auto) 2.52 K/mcL (1.50-4.80); Lymphocytes % (Auto) 31.2 % (15.5-49.0); Mean Cell Volume 103.3 fL (80.0-100.0); Mean Corpuscular HGB Conc 31.3 g/dL (31.0-36.0); Mean Platelet Volume 11.7 fL (7.4-10.4); Monocytes # (Auto) 0.75 K/mcL (0.10-0.90); Monocytes % (Auto) 9.3 % (1.0-12.0); Neutrophils % (Auto) 53.7 % (38.0-78.0); Platelet Count 182 K/mcL (140-440); RBC 3.31 M/mcL (3.59-5.38); Red Cell Distribution Width 19.4 % (11.5-14.5); WBC 8.1 K/mcL (4.5-11.0)
[2021-07-04 08:59] LABS: ALT/SGPT 17 U/L (<40); AST/SGOT 21 U/L (<32); Albumin 2.5 gm/dL (3.2-5.2); Albumin/Globulin Ratio 0.8 (1.0-2.3); Alkaline Phosphatase 165 U/L (39-117); Bilirubin,Total 0.3 mg/dL (0.1-1.0); Blood Urea Nitrogen 7 mg/dL (6-20); Calcium 8.3 mg/dL (8.6-10.4); Carbon Dioxide 20 mmol/L (22-30); Chloride 108 mmol/L (96-108); Globulin 3.2 gm/dL (2.2-3.7); Glomerular Filtration Rate 105; Glucose 87 mg/dL (70-105)
[2021-07-04] MEDS: CYCLOBENZAPRINE 10 MG TABLET PO SCH (09:08)
[2021-07-04] MEDS: LEVOTHYROXINE 100 MCG TABLET PO SCH (09:09)
[2021-07-04] MEDS: ZINC SULFATE 50 MG CAPSULE PO SCH (09:10)
[2021-07-04] MEDS: FOLIC ACID 1 MG TABLET PO SCH (09:10)
[2021-07-04] MEDS: POTASSIUM CHLORIDE 20 MEQ TABLET PO SCH (09:10)
[2021-07-04] MEDS: ASCORBIC ACID 500 MG TABLET PO SCH (09:11)
[2021-07-04] MEDS: OMEPRAZOLE 20 MG CAPSULE PO SCH (09:11)
[2021-07-04] MEDS: OXYBUTYNIN CHLORIDE 5 MG TABLET PO SCH (09:11)
[2021-07-04] MEDS: TORSEMIDE 10 MG TABLET PO SCH (09:12)
[2021-07-04] MEDS: TOPIRAMATE 25 MG TABLET PO SCH ×2 (09:12→20:30)
[2021-07-04] MEDS: MAGNESIUM OXIDE 400 MG TABLET PO SCH (09:13)
[2021-07-04] MEDS: PREGABALIN 150 MG CAPSULE PO SCH ×2 (09:14→20:29)
[2021-07-04] MEDS: IBUPROFEN 800 MG TABLET PO SCH ×3 (09:14→20:00)
[2021-07-04] MEDS: clonazePAM 1 MG TABLET PO SCH ×3 (09:14→20:30)
[2021-07-04] MEDS: ESCITALOPRAM 20 MG TABLET PO SCH (09:14)
[2021-07-04] MEDS: LITHIUM CARBONATE 150 MG CAPSULE PO SCH ×2 (09:15→20:29)
[2021-07-04] MEDS ORDERED: FLU VACC QS2021-22(6MOS UP)/PF 60 MCG/0.5 ML SYRINGE IM ONE (10:00)
--- NOTE | 2021-07-04 12:20 | Internal Med Progress Note ---
SUBJECTIVE Subjective Patient information: Note initiated : 07/04/21 at 12:16 pm Service Date, if different from initiated Date: [] Patient: Glaina Solorzano a 45 y/o F admitted on 07/02/21 for lethergy, diaphoretic. Chief Complaint: [UTI] Interval history: History of present illness: Ms. Solorzano is a 45 year old F history of cerebral palsy, hypothyroidism, recurrent UTI, presenting with 1 day history of lethargy. Last episode of urinary tract infection was about a month ago. Patient is a care home resident and today she was noted by the nursing staff to be lethargic and she was being sent to our ED for further evaluations. Vital signs upon ED presentations were within normal limits. CBC and CMP pending. Urinalysis suggest the presence of urinary tract infections. Rest of the history is limited by the patient's clinical situations. 07/03: Afebrile overnight. Hemoglobin 7.6-->6.6. Blood and urine cultures no growth to date. No other major overnight events. Subjective not obtained due to clinical situations. 07/04: Afebrile overnight. Urine culture growing providencia stuartii and gram negative bacillus. Hemoglobin 6.6-->10.7 after 2 unit pRBC transfusion on 07/03. Denies fever or chills or sweating. c/o severe sacral pain during wound vac replacement. Constitutional Vitals: Vital Signs Temp Pulse Resp BP Pulse Ox 36.4 C 84 20 124/84 93 07/04/21 12:00 07/04/21 08:00 07/04/21 12:00 07/04/21 12:00 07/04/21 12:00 Period Temp Pulse Resp BP Sys/Albert Pulse Ox Last 24 Hr 36.2 C-36.9 C 70-89 14-24 85-127/54-84 87-99 Intake and Output 07/03/21 07/04/21 07/04/21 21:59 05:59 13:59 Intake Total 9 650 50 Output Total 303 056 7263 Balance 1519 -50 -1050 Weight 101.423 kg Intake & Output: Intake & Output 07/03/21 07/04/21 07/04/21 21:59 05:59 13:59 Intake Total 9 650 50 Output Total 999 683 7529 Balance 1519 -50 -1050 Weight 101.423 kg Intake: IV 664 50 50 Sodium Chloride 0.9% 250 ml @ 114 20 mls/hr IV .[id number] [facility] Rx#: [id number] Sodium Chloride 0.9% 500 ml @ 500 Wide Open IV [facility] Rx#: [id number] Zosyn 3.375 gm In Dextrose 5% 50 50 50 in Water 50 ml @ 100 mls/hr IV Q6H [facility] Rx#:[id number] Oral 1080 600 Blood Product 325 Output: Urine Catheter Amount 700 1100 Void Amount 550 Other: Urine Appearance Clear Clear Cloudy Urine Color Straw Bright Yellow Straw Urine Odor Normal Stool Size Smear Smear Stool Color Yellow Yellow Green Green Stool Consistency Liquid Loose # of times incontinent of 1 Bowels General appearance: cooperative, moderate distress and morbidly obese Exam: lethargic Head Head exam: Present atraumatic and normocephalic Eye Eye exam: Present EOMI and PERRL ENT ENT exam: Present mucous membranes moist, normal exam and normal external ear exam Neck Neck exam: Present normal inspection; Absent lymphadenopathy, tenderness and thyromegaly Respiratory Respiratory exam: Absent accessory muscle use, respiratory distress and wheezes Cardiovascular Cardiovascular exam: Present normal rate and rhythm; Absent JVD GI/Abdominal GI/Abdominal exam: Present normal bowel sounds and soft; Absent organomegaly and tenderness Additional comments: Linder catheter Extremities Exam Extremities exam: Present full ROM, normal capillary refill and normal inspection; Absent tenderness Neurological Exam Neurological exam: Present alert, CN II-XII intact, motor sensory deficit and oriented X3 Psychiatric Psychiatric exam: Present normal affect and normal mood; Absent anxious and depressed Skin Skin exam: Present dry; Absent intact Additional comments: stage IV sacral decubitus ulcer OBJ DATA Labs CBC & Chem 7: 07/04/21 05:58 07/04/21 05:58 Labs: Abnormal Lab Results 07/04/21 07/04/21 07/03/21 05:58 05:58 05:30 RBC 3.31 L Hgb 10.7 L Hct MCV 103.3 H MCHC RDW 19.4 H MPV 11.7 H Baldwin % (Auto) Baldwin # (Auto) Carbon Dioxide 20 L Anion Gap 6.0 L Calcium 8.3 L 8.3 L Alkaline Phosphatase 165 H 157 H Total Protein 5.7 L 5.7 L Albumin 2.5 L 2.8 L Albumin/Globulin Ratio 0.8 L Procalcitonin Urine Appearance Urine Nitrate Ur Leukocyte Esterase Urine RBC Urine WBC Urine Bacteria Hyaline Casts Urine Mucus 07/03/21 07/02/21 07/02/21 05:30 18:28 17:48 RBC 2.11 L Hgb 6.6 L* Hct 23.9 L MCV 113.3 H MCHC 27.6 L RDW 19.9 H MPV 11.6 H Baldwin % (Auto) Baldwin # (Auto) Carbon Dioxide Anion Gap 7.0 L Calcium 8.5 L Alkaline Phosphatase 169 H Total Protein Albumin 2.9 L Albumin/Globulin Ratio 0.9 L Procalcitonin 0.27 H Urine Appearance Urine Nitrate Ur Leukocyte Esterase Urine RBC Urine WBC Urine Bacteria Hyaline Casts Urine Mucus 07/02/21 07/02/21 17:47 15:25 RBC 2.39 L Hgb 7.6 L Hct 27.7 L MCV 115.9 H MCHC 27.4 L RDW 20.3 H MPV 11.4 H Baldwin % (Auto) 13.3 H Baldwin # (Auto) 0.95 H Carbon Dioxide Anion Gap Calcium Alkaline Phosphatase Total Protein Albumin Albumin/Globulin Ratio Procalcitonin Urine Appearance Hazy A Urine Nitrate Pos A Ur Leukocyte Esterase 25 A Urine RBC 70 H Urine WBC 33 H Urine Bacteria Few A Hyaline Casts 12 H Urine Mucus Few A Meds: Medications Acetaminophen (Acetaminophen 325 Mg Tablet) 650 mg PO Q6HP PRN; Protocol PRN Reason: Per Pain Protocol/Fever > 101 Ascorbic Acid (Ascorbic Acid 500 Mg Tablet) 500 mg PO DAILY [facility] Last Admin: 07/04/21 09:11 Dose: 500 mg Documented by: Clonazepam (Clonazepam 1 Mg Tablet) 2 mg PO TID [facility] Last Admin: 07/04/21 09:14 Dose: 2 mg Documented by: Cyclobenzaprine HCl (Cyclobenzaprine 10 Mg Tablet) 5 mg PO QDAY [facility] Last Admin: 07/04/21 09:08 Dose: 5 mg Documented by: Docusate Sodium (Docusate Sodium 100 Mg Capsule) 100 mg PO BID [facility] Last Admin: 07/03/21 20:41 Dose: Not Given Documented by: Escitalopram Oxalate (Escitalopram 20 Mg Tablet) 20 mg PO DAILY [facility] Last Admin: 07/04/21 09:14 Dose: 20 mg Documented by: Fluticasone Propionate (Fluticasone Propionate [place].Papa) 1 spray NS DAILY [facility] Last Admin: 07/03/21 08:30 Dose: Not Given Documented by: Folic Acid (Folic Acid 1 Mg Tablet) 1 mg PO DAILY [facility] Last Admin: 07/04/21 09:10 Dose: 1 mg Documented by: Piperacillin Sod/Tazobactam (Sod 3.375 gm/ Dextrose) 50 mls @ 100 mls/hr IV Q6H [facility]; Protocol Last Infusion: 07/04/21 06:59 Dose: Infused Documented by: Ibuprofen (Ibuprofen 800 Mg Tablet) 800 mg PO TIDCC [facility]; Protocol Last Admin: 07/04/21 09:14 Dose: 800 mg Documented by: Levothyroxine Sodium (Levothyroxine 100 Mcg Tablet) 200 mcg PO ACB [facility] Last Admin: 07/04/21 09:09 Dose: 200 mcg Documented by: [place] Carbonate ([place] Carbonate 150 Mg Capsule) 300 mg PO BID [facility] Last Admin: 07/04/21 09:15 Dose: 300 mg Documented by: Loperamide HCl (Loperamide 2 Mg Capsule) 2 mg PO PRN PRN PRN Reason: Diarrhea Last Admin: 07/03/21 20:40 Dose: 2 mg Documented by: Magnesium Oxide (Magnesium Oxide 400 Mg Tablet) 400 mg PO QDAY [facility] Last Admin: 07/04/21 09:13 Dose: 400 mg Documented by: Meclizine HCl (Meclizine 25 Mg Tablet) 25 mg PO DAILYP PRN PRN Reason: Vertigo Omeprazole (Omeprazole 20 Mg Capsule) 20 mg PO QDAY [facility] Last Admin: 07/04/21 09:11 Dose: 20 mg Documented by: Ondansetron HCl (Ondansetron 4 Mg/2 Ml Vial) 4 mg IV Q6HP PRN PRN Reason: Nausea And Vomiting Oxybutynin Chloride (Oxybutynin Chloride 5 Mg Tablet) 10 mg PO QDAY [facility] Last Admin: 07/04/21 09:11 Dose: 10 mg Documented by: Oxycodone HCl (Oxycodone Hcl 5 Mg Tablet) 10 mg PO QIDP PRN PRN Reason: Pain Last Admin: 07/02/21 22:55 Dose: 10 mg Documented by: Potassium Chloride (Potassium Chloride 20 Meq Tablet) 20 meq PO QAMCC [facility] Last Admin: 07/04/21 09:10 Dose: 20 meq Documented by: Pregabalin (Pregabalin 150 Mg Capsule) 150 mg PO BID [facility] Last Admin: 07/04/21 09:14 Dose: 150 mg Documented by: Quetiapine Fumarate (Quetiapine 100 Mg Tablet) 400 mg PO [facility] Last Admin: 07/03/21 20:38 Dose: 400 mg Documented by: Senna (Sennosides 1 Tablet) 2 tab PO HS [facility] Last Admin: 07/03/21 20:38 Dose: Not Given Documented by: Sodium Chloride (0.9 % Sodium Chloride 10 Ml Syringe) 10 ml IV Q8 [facility] Last Admin: 07/04/21 06:03 Dose: 10 ml Documented by: Sumatriptan Succinate (Sumatriptan Succinate 50 Mg Tablet) 50 mg PO ONCE PRN PRN Reason: Headache Topiramate (Topiramate 25 Mg Tablet) 50 mg PO BID [facility] Last Admin: 07/04/21 09:12 Dose: 50 mg Documented by: Torsemide (Torsemide 10 Mg Tablet) 20 mg PO DAILY [facility] Last Admin: 07/04/21 09:12 Dose: 20 mg Documented by: Zinc Sulfate (Zinc Sulfate 50 Mg Capsule) 50 mg PO DAILY [facility] Last Admin: 07/04/21 09:10 Dose: 50 mg Documented by: Zolpidem Tartrate (Zolpidem 5 Mg Tablet) 5 mg PO HSP PRN PRN Reason: Insomnia A/P Assessment and plan (1) Urinary tract infection: Status: Acute Qualifiers: Hematuria presence: without hematuria Urinary tract infection type: acute cystitis Qualified Code(s): N30.00 - Acute cystitis without hematuria (2) Cerebral palsy, unspecified: Status: Chronic (3) Acid reflux: Status: Chronic (4) Hypothyroidism: Status: Acute Narrative A/P Narrative: Assessment and plan: 1. Urinary tract infections: Inpatient MedSurg Due to extended list of allergy profile as well as recurrent episode of UTI with multi resistance, will start with Zosyn Blood culture, no growth to date Urine culture, growing providencia stuartii and gram negative bacillus Serial lactic acid Procalcitonin 0.27 CBC with auto differential in the morning to trend WBC Tylenol as needed fever 2. History of cerebral palsy: Continue Topamax for seizure prophylaxis 3. History of hypothyroidism: Continue thyroid replacement therapy 4. History of reflux: Continue oral PPI from home regiment 5. Sacral decubitus ulcer: Wound vac replacement and routine wound care as per wound care team 6. Macrocytic anemia: Hemoglobin 6.6-->10.7 after 2 unit pRBC transfusion on 07/03 Repeat cbc w/ auto diff in the morning to trend H/H GI prophylaxis: Continue oral PPI from home regiment DVT prophylaxis: SCDs CODE STATUS: Full code Prognosis: Stable Dispositions: Inpatient MedSurg Time Spent With Patient Time: Total time spent is greater than 50% in coordination of care (as documented) at patient's floor/unit and/or counseling patient: QUALITY VTE Deep Vein Thrombosis/Pulmonary Embolism Present on Admission: No
[2021-07-04] MEDS: oxyCODONE HCL 5 MG TABLET PO PRN ×2 (12:44→20:30)
[2021-07-04] MEDS: DOCUSATE SODIUM 100 MG CAPSULE PO SCH ×2 (12:47→20:31)
[2021-07-04] MEDS: FLUTICASONE PROPIONATE SPRAY.NAS NS SCH (12:47)
--- NOTE | 2021-07-04 14:58 | General Surgery Consult Note ---
HPI Data of Consult Patient: known to practice within the last 3 years (Patient known to staff at wound care center [facility]) Consult date: 07/04/21 Primary Care Provider: Brad Beasley Family Provider: I saw this patient along with VANNESA KUHN. CC: Wound care management for Sacral Pressure Ulcer Stage 3 Mynor is a bed confined morbid obese lady with multiple medical problems and on multiple Meds. Admitted via ER for UTI and Urosepsis. Consult Narrative cc:: CC: Louis Anderson MD Constitutional Constitutional: Present as per HPI, fatigue and lethargy Additional comments: Urinalysis with Nitrates, Leucocyte Esterase and WBC PFSH PFSH All Active Problems Sacral decubitus ulcer, stage IV (Acute) Anemia, macrocytic (Acute) Hypothyroidism (Acute) Urinary tract infection (Acute) Constipation (Chronic) Functional dyspepsia (Chronic) Amblyopia (Chronic) Migraine (Chronic) Personality disorder (Chronic) Panic disorder (Chronic) Major depressive disorder (Chronic) Anemia (Chronic) Pleurisy (Chronic) Open wound of left thigh (Chronic) Open wound of buttock (Chronic) Hypoxemia (Chronic) Low back pain (Chronic) Other streptococcus as the cause of diseases classified elsewhere (Chronic) Narcissistic personality disorder (Chronic) Anhedonia (Chronic) Pure hypercholesterolemia (Chronic) Bipolar disorder (Chronic) Noninfective gastroenteritis and colitis, unspecified (Chronic) Somatoform disorder, unspecified (Chronic) Adverse effect of other opioids, subsequent encounter (Chronic) Morbid obesity due to excess calories (Chronic) Cerebral palsy, unspecified (Chronic) Daytime sleepiness (Chronic) Laceration of left leg (Chronic) Vertigo (Chronic) Borderline personality disorder (Chronic) Somatic symptom disorder (Chronic) Fibromyalgia (Chronic) Dependence on wheelchair (Chronic) History of falling (Chronic) Edema (Chronic) Malaise and fatigue (Chronic) Chronic fatigue (Chronic) Dizziness and giddiness (Chronic) Spasm of muscle (Chronic) Pilonidal cyst without abscess (Chronic) Other injury of unspecified body region, initial encounter (Chronic) Contusion of shoulder (Chronic) Open wound (Chronic) Urination frequency (Chronic) Retention of urine (Chronic) Nausea and vomiting (Chronic) Irregular menstruation (Chronic) Calculus of gallbladder (Chronic) Upper respiratory infection (Chronic) Chronic rhinitis (Chronic) Pain in throat (Chronic) Sepsis (Chronic) Acute cholecystitis (Chronic) Ankle pain, right (Chronic) Knee pain, right (Chronic) Urinary incontinence (Chronic) Tobacco abuse (Chronic) Disorder of thyroid (Chronic) Muscle ache (Chronic) Migraine (Chronic) Insomnia (Chronic) Hyperthyroidism (Chronic) Hypertension, essential (Chronic) Heartburn (Chronic) Bursitis, trochanteric (Chronic 02/14/15) Fatigue (Chronic) Depressive disorder (Chronic) 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) [place]ar[place]'s palsy (Chronic) Arthritis (Chronic) Anxiety disorder (Chronic) Acid reflux (Chronic) Medical History Acid reflux Acute cholecystitis Adverse effect of other opioids, subsequent encounter Amblyopia Anemia Anhedonia Ankle pain, right Anxiety disorder Arthritis [place]ar[place]'s palsy infantile Bipolar disorder Borderline personality disorder Bursitis, trochanteric (02/14/15) Calculus of gallbladder Cerebral palsy, unspecified Chronic fatigue Chronic rhinitis Constipation Contusion of shoulder Daytime sleepiness Dependence on wheelchair Depressive disorder Disorder of thyroid Dizziness and giddiness Edema Fatigue Fibromyalgia Functional dyspepsia Heartburn History of falling Hypertension, essential Hyperthyroidism Hypoxemia Infantile cerebral palsy (02/14/15) Insomnia Irregular menstruation Knee pain, right Low back pain Major depressive disorder Malaise and fatigue Migraine Migraine Morbid obesity due to excess calories Muscle ache Narcissistic personality disorder Nausea and vomiting Noninfective gastroenteritis and colitis, unspecified Open wound Open wound of buttock Open wound of left thigh Other injury of unspecified body region, initial encounter Other streptococcus as the cause of diseases classified elsewhere Pain in throat Panic disorder Personality disorder Pilonidal cyst without abscess Pleurisy Pure hypercholesterolemia Retention of urine Sepsis Somatic symptom disorder Somatoform disorder, unspecified Spasm of muscle Tobacco abuse Upper respiratory infection Urinary incontinence Urination frequency Vertigo Surgical History No pertinent past surgical history Family History Mother Dementia Family history of malignant neoplasm Family history of arthritis Essential hypertension Acute myocardial infarction Father Acute myocardial infarction Social History marital status: single alcohol intake frequency: does not drink substance use type: former substance user and marijuana MEDS/ALLERGIES Home Medications and Allergies Home Medications Medication Instructions Recorded Confirmed Type fluticasone propionate 50 50 mcg INTRANASAL DAILY g 05/01/15 07/02/21 History mcg/actuation nasal spray,suspension ibuprofen 800 mg tablet 800 mg PO .COMPLEX tab 05/01/15 07/02/21 History omeprazole 20 mg capsule,delayed 20 mg PO QDAY cap 05/01/15 07/02/21 History release ascorbate calcium (vitamin C) 500 500 mg PO QDAY 04/18/19 07/02/21 History mg tablet cyclobenzaprine 5 mg tablet 5 mg PO QDAY tab 04/18/19 07/02/21 History docusate sodium 100 mg capsule 100 mg PO BID 04/18/19 07/02/21 History folic acid 800 mcg tablet 0.8 mg PO QDAY 04/18/19 07/02/21 History lithium carbonate 300 mg 300 mg PO BID tab 04/18/19 07/02/21 History tablet,extended release magnesium oxide 400 mg (241.3 mg 400 mg PO QDAY tab 04/18/19 07/02/21 History magnesium) tablet meclizine 25 mg tablet 25 mg PO QDAY PRN 04/18/19 07/02/21 History ondansetron 4 mg disintegrating 4 mg PO ONCE tab 04/18/19 07/02/21 History tablet oxybutynin chloride 10 mg 10 mg PO QDAY 04/18/19 07/02/21 History tablet,extended release 24 hr potassium chloride 20 mEq 20 meq PO QDAY 04/18/19 07/02/21 History tablet,extended release sennosides 8.6 mg tablet 8.6 mg PO ONCE PRN tab 04/18/19 07/02/21 History sumatriptan succinate 50 mg tablet 50 mg PO ONCE PRN tab 04/18/19 07/02/21 History topiramate 50 mg tablet 50 mg PO BID 04/18/19 07/02/21 History torsemide 20 mg tablet 20 mg PO QDAY 04/18/19 07/02/21 History zinc 50 mg tablet 50 mg PO QDAY 04/18/19 07/02/21 History clonazepam 2 mg tablet 2 mg PO TID 05/17/19 07/02/21 History levothyroxine 200 mcg capsule 200 mcg PO QDAY 05/17/19 07/02/21 History oxycodone 10 mg tablet 10 mg PO QID tab 05/17/19 07/02/21 History oxycodone 5 mg capsule 5 mg PO QDAY PRN cap 05/17/19 07/02/21 History pregabalin 150 mg capsule 150 mg PO BID 05/17/19 07/02/21 History quetiapine 400 mg tablet 400 mg PO QHS tab 05/17/19 07/02/21 History alendronate 70 mg PO MONTHLY 07/02/21 07/02/21 History escitalopram oxalate 20 mg PO DAILY 07/02/21 07/02/21 History Allergies Allergy/AdvReac Type Severity Reaction Status Date / Time adhesive tape Allergy Intermediate Rash Verified 07/02/21 20:52 Erythromycin Base AdvReac Intermediate Vomiting Verified 07/03/21 06:00 baclofen AdvReac Mild Vomiting Verified 07/03/21 06:00 ceftriaxone [From Rocephin] AdvReac Mild Vomiting Verified 07/03/21 06:00 cefuroxime AdvReac Mild Vomiting Verified 07/03/21 06:00 methadone AdvReac Mild Hallucinati Verified 07/03/21 06:00 ng morphine AdvReac Mild Hallucinati Verified 07/03/21 06:00 ng Physical Examination Vital Signs Vital signs: Temp Pulse Resp BP Pulse Ox 97.6 F 84 20 124/84 93 07/04/21 12:00 07/04/21 08:00 07/04/21 12:00 07/04/21 12:00 07/04/21 12:00 General physical appearance General physical exam: obese (Supermorbid obese. Bed confined.) Eyes Eye exam: PERRL ENT ENT exam: normal pinna, normal nares and no congestion Head Head exam IM: Present atraumatic and normocephalic Neck Neck exam: no masses and no venous distension Cardiovascular Cardiovascular exam IM: Present normal rate and rhythm Respiratory Respiratory exam: normal expansion and normal respiratory effort Respiratory exam: absent breath sounds: bilateral (Super morbid obesity) Abdomen Abdomen: Present soft, non tender and bowel sounds Integumentary Integumentary: Present other (Stage 3 Sacral dcubitus. Granulating clean wound bed. Biofilm/ NO signs of acute infection or inflammation.) Neurologic Neurologic: Present other (CHRONIC Developmental / Behavioral isssues. ) Musculoskeletal Musculoskeletal: Present other (Patietn lying in bed. Symmety of limbs and purposeful movements. ) Results Labs Result diagrams: 07/04/21 05:58 07/04/21 05:58 Labs: Abnormal lab results 07/04/21 07/04/21 Range/Units 05:58 05:58 RBC 3.31 L (3.59-5.38) M/mcL Hgb 10.7 L (11.2-15.7) g/dL MCV 103.3 H (80.0-100.0) fL RDW 19.4 H (11.5-14.5) % MPV 11.7 H (7.4-10.4) fL Carbon Dioxide 20 L (22-30) mmol/L Calcium 8.3 L (8.6-10.4) mg/dL Alkaline Phosphatase 165 H (39-117) U/L Total Protein 5.7 L (5.9-8.4) gm/dL Albumin 2.5 L (3.2-5.2) gm/dL Albumin/Globulin Ratio 0.8 L (1.0-2.3) Diabetes panel 07/04/21 Range/Units 05:58 Sodium 139 (133-145) mmol/L Potassium 3.6 (3.3-5.1) mmol/L Chloride 108 (96-108) mmol/L Carbon Dioxide 20 L (22-30) mmol/L BUN 7 (6-20) mg/dL Creatinine 0.7 (0.6-1.1) mg/dL Glucose 87 (70-105) mg/dL Calcium 8.3 L (8.6-10.4) mg/dL AST 21 (<32) U/L ALT 17 (<40) U/L Alkaline Phosphatase 165 H (39-117) U/L Total Protein 5.7 L (5.9-8.4) gm/dL Albumin 2.5 L (3.2-5.2) gm/dL Calcium panel 07/04/21 Range/Units 05:58 Calcium 8.3 L (8.6-10.4) mg/dL Albumin 2.5 L (3.2-5.2) gm/dL Pituitary panel 07/04/21 Range/Units 05:58 Sodium 139 (133-145) mmol/L Potassium 3.6 (3.3-5.1) mmol/L Chloride 108 (96-108) mmol/L Carbon Dioxide 20 L (22-30) mmol/L BUN 7 (6-20) mg/dL Creatinine 0.7 (0.6-1.1) mg/dL Glucose 87 (70-105) mg/dL Calcium 8.3 L (8.6-10.4) mg/dL Adrenal panel 07/04/21 Range/Units 05:58 Sodium 139 (133-145) mmol/L Potassium 3.6 (3.3-5.1) mmol/L Chloride 108 (96-108) mmol/L Carbon Dioxide 20 L (22-30) mmol/L BUN 7 (6-20) mg/dL Creatinine 0.7 (0.6-1.1) mg/dL Glucose 87 (70-105) mg/dL Calcium 8.3 L (8.6-10.4) mg/dL Total Bilirubin 0.3 (0.1-1.0) mg/dL AST 21 (<32) U/L ALT 17 (<40) U/L Alkaline Phosphatase 165 H (39-117) U/L Total Protein 5.7 L (5.9-8.4) gm/dL Albumin 2.5 L (3.2-5.2) gm/dL All other labs normal. A/P Narrative A/P Narrative: Assessment: Super morbid Obesity. Bed Confined. Multiple comorbidities. Stable. URINARY TRACT INFECTION On conservative management. I V fluids / Antibiotics. Patient was being treated at [facility] in [facility] WOUND VAC . Currently wound VAC is NOT available at [facility] hospital floors. Plan: Clean wound with VASHE , Dwell time 5 mts Later apply SILVASORB or Mupirocin ointment ONCE Daily Encourage hydration. PO fluids. I will continue to see this patient during her hospitalization, Time Spent With Patient Time: Total time spent is greater than 50% in coordination of care (as documented) at patient's floor/unit and/or counseling patient: Total time spent with greater than 50% in coordination of care (as documented) at patient's floor/unit and/or counseling patient:: 15 - 24 minutes
[2021-07-04] MEDS: QUEtiapine 100 MG TABLET PO SCH (20:29)
[2021-07-04] MEDS: SENNOSIDES 1 TABLET PO SCH (20:31)
[2021-07-05] MEDS: PIPERACILLIN SODIUM/TAZOBACTAM 3.375 GM in DEXTROSE 5% IN WATER 50 ML IV SCH ×5 (00:12→17:32)
[2021-07-05] MEDS: 0.9 % SODIUM CHLORIDE 10 ML SYRINGE IV SCH ×3 (05:53→20:30)
[2021-07-05] MEDS: LEVOTHYROXINE 100 MCG TABLET PO SCH (07:01)
[2021-07-05 08:01] LABS: Basophils # (Auto) 0.08 K/mcL (0.00-0.30); Basophils % (Auto) 0.8 % (0.0-2.0); Eosinophils # (Auto) 0.34 K/mcL (0.00-0.70); Eosinophils % (Auto) 3.6 % (0.0-7.0); Hemoglobin 10.3 g/dL (11.2-15.7); Lymphocytes # (Auto) 2.68 K/mcL (1.50-4.80); Lymphocytes % (Auto) 28.4 % (15.5-49.0); Mean Corpuscular HGB Conc 29.4 g/dL (31.0-36.0); Mean Platelet Volume 12.1 fL (7.4-10.4); Monocytes # (Auto) 0.78 K/mcL (0.10-0.90); Monocytes % (Auto) 8.3 % (1.0-12.0); Neutrophils % (Auto) 58.9 % (38.0-78.0); Platelet Count 164 K/mcL (140-440); RBC 3.27 M/mcL (3.59-5.38); Red Cell Distribution Width 19.6 % (11.5-14.5); WBC 9.5 K/mcL (4.5-11.0)
[2021-07-05 08:02] LABS: ALT/SGPT 18 U/L (<40); AST/SGOT 16 U/L (<32); Albumin 2.4 gm/dL (3.2-5.2); Albumin/Globulin Ratio 0.8 (1.0-2.3); Alkaline Phosphatase 167 U/L (39-117); Bilirubin,Total 0.2 mg/dL (0.1-1.0); Blood Urea Nitrogen 6 mg/dL (6-20); Calcium 8.6 mg/dL (8.6-10.4); Carbon Dioxide 23 mmol/L (22-30); Chloride 110 mmol/L (96-108); Globulin 3.2 gm/dL (2.2-3.7); Glomerular Filtration Rate 110; Glucose 81 mg/dL (70-105)
[2021-07-05] MEDS: FLUTICASONE PROPIONATE SPRAY.NAS NS SCH (08:41)
[2021-07-05] MEDS: DOCUSATE SODIUM 100 MG CAPSULE PO SCH ×2 (09:14→20:29)
--- NOTE | 2021-07-05 10:18 | Internal Med Progress Note ---
SUBJECTIVE Subjective Patient information: Note initiated : 07/05/21 at 10:17 am Service Date, if different from initiated Date: [] Patient: Galina Solorzano a 45 y/o F admitted on 07/02/21 for lethergy, diaphoretic. Chief Complaint: [UTI] Interval history: History of present illness: Ms. Solorzano is a 45 year old F history of cerebral palsy, hypothyroidism, recurrent UTI, presenting with 1 day history of lethargy. Last episode of urinary tract infection was about a month ago. Patient is a intermediate resident and today she was noted by the nursing staff to be lethargic and she was being sent to our ED for further evaluations. Vital signs upon ED presentations were within normal limits. CBC and CMP pending. Urinalysis suggest the presence of urinary tract infections. Rest of the history is limited by the patient's clinical situations. 07/03: Afebrile overnight. Hemoglobin 7.6-->6.6. Blood and urine cultures no growth to date. No other major overnight events. Subjective not obtained due to clinical situations. 07/04: Afebrile overnight. Urine culture growing providencia stuartii and gram negative bacillus. Hemoglobin 6.6-->10.7 after 2 unit pRBC transfusion on 07/03. Denies fever or chills or sweating. c/o severe sacral pain during wound vac replacement. 07/05: Afebrile overnight. Urine culture growing providencia stuartii and gram negative bacillus. H/H stable. Denies fever or chills or sweating. Denies urinary symptoms such as dysuria. Constitutional Vitals: Vital Signs Temp Pulse Resp BP Pulse Ox 36.7 C 72 18 105/62 91 07/05/21 07:39 07/05/21 04:00 07/05/21 07:39 07/05/21 07:39 07/05/21 07:39 Period Temp Pulse Resp BP Sys/Albert Pulse Ox Last 24 Hr 36.2 C-36.8 C 72-83 16-22 85-124/50-84 91-97 Intake and Output 07/04/21 07/05/21 07/05/21 21:59 05:59 13:59 Intake Total 590 290 50 Output Total 900 850 Balance -310 -560 50 Weight 102.058 kg Intake & Output: Intake & Output 07/04/21 07/05/21 07/05/21 21:59 05:59 13:59 Intake Total 590 290 50 Output Total 900 850 Balance -310 -560 50 Weight 102.058 kg Intake: IV 50 50 50 Zosyn 3.375 gm In Dextrose 5% 50 50 50 in Water 50 ml @ 100 mls/hr IV Q6H [facility] Rx#:[id number] Oral 540 240 Output: Urine Catheter Amount 900 850 Other: Meal Dinner Percent of Meal Consumed 50% Urine Appearance Clear Clear Sediment Urine Color Pale Straw Stool Size Large Moderate Stool Color Brown Brown Stool Consistency Normal for Patient Loose Soft # of times incontinent of 1 Bowels General appearance: cooperative and no acute distress Exam: lethargic Head Head exam: Present atraumatic and normocephalic Eye Eye exam: Present EOMI and PERRL ENT ENT exam: Present mucous membranes moist, normal exam and normal external ear exam Neck Neck exam: Present normal inspection; Absent lymphadenopathy, tenderness and thyromegaly Respiratory Respiratory exam: Absent accessory muscle use, respiratory distress and wheezes Cardiovascular Cardiovascular exam: Present normal rate and rhythm; Absent JVD GI/Abdominal GI/Abdominal exam: Present normal bowel sounds and soft; Absent organomegaly and tenderness Additional comments: Linder catheter Extremities Exam Extremities exam: Present full ROM, normal capillary refill and normal inspection; Absent tenderness Neurological Exam Neurological exam: Present alert, CN II-XII intact, motor sensory deficit and oriented X3 Psychiatric Psychiatric exam: Present normal affect and normal mood; Absent anxious and depressed Skin Skin exam: Present dry; Absent intact Additional comments: Stage 4 sacral wound OBJ DATA Labs CBC & Chem 7: 07/05/21 06:14 07/05/21 06:14 Labs: Abnormal Lab Results 07/05/21 07/05/21 07/04/21 06:14 06:14 05:58 RBC 3.27 L Hgb 10.3 L Hct MCV 107.0 H MCHC 29.4 L RDW 19.6 H MPV 12.1 H [place] % (Auto) [place] # (Auto) Chloride 110 H Carbon Dioxide 20 L Anion Gap 7.0 L Calcium 8.3 L Alkaline Phosphatase 167 H 165 H Total Protein 5.6 L 5.7 L Albumin 2.4 L 2.5 L Albumin/Globulin Ratio 0.8 L 0.8 L Procalcitonin Urine Appearance Urine Nitrate Ur Leukocyte Esterase Urine RBC Urine WBC Urine Bacteria Hyaline Casts Urine Mucus 07/04/21 07/03/21 07/03/21 05:58 05:30 05:30 RBC 3.31 L 2.11 L Hgb 10.7 L 6.6 L* Hct 23.9 L MCV 103.3 H 113.3 H MCHC 27.6 L RDW 19.4 H 19.9 H MPV 11.7 H 11.6 H [place] % (Auto) [place] # (Auto) Chloride Carbon Dioxide Anion Gap 6.0 L Calcium 8.3 L Alkaline Phosphatase 157 H Total Protein 5.7 L Albumin 2.8 L Albumin/Globulin Ratio Procalcitonin Urine Appearance Urine Nitrate Ur Leukocyte Esterase Urine RBC Urine WBC Urine Bacteria Hyaline Casts Urine Mucus 07/02/21 07/02/21 07/02/21 18:28 17:48 17:47 RBC 2.39 L Hgb 7.6 L Hct 27.7 L MCV 115.9 H MCHC 27.4 L RDW 20.3 H MPV 11.4 H [place] % (Auto) 13.3 H [place] # (Auto) 0.95 H Chloride Carbon Dioxide Anion Gap 7.0 L Calcium 8.5 L Alkaline Phosphatase 169 H Total Protein Albumin 2.9 L Albumin/Globulin Ratio 0.9 L Procalcitonin 0.27 H Urine Appearance Urine Nitrate Ur Leukocyte Esterase Urine RBC Urine WBC Urine Bacteria Hyaline Casts Urine Mucus 07/02/21 15:25 RBC Hgb Hct MCV MCHC RDW MPV [place] % (Auto) [place] # (Auto) Chloride Carbon Dioxide Anion Gap Calcium Alkaline Phosphatase Total Protein Albumin Albumin/Globulin Ratio Procalcitonin Urine Appearance Hazy A Urine Nitrate Pos A Ur Leukocyte Esterase 25 A Urine RBC 70 H Urine WBC 33 H Urine Bacteria Few A Hyaline Casts 12 H Urine Mucus Few A Meds: Medications Acetaminophen (Acetaminophen 325 Mg Tablet) 650 mg PO Q6HP PRN; Protocol PRN Reason: Per Pain Protocol/Fever > 101 Ascorbic Acid (Ascorbic Acid 500 Mg Tablet) 500 mg PO DAILY [facility] Last Admin: 07/04/21 09:11 Dose: 500 mg Documented by: Clonazepam (Clonazepam 1 Mg Tablet) 2 mg PO TID [facility] Last Admin: 07/04/21 20:30 Dose: 2 mg Documented by: Cyclobenzaprine HCl (Cyclobenzaprine 10 Mg Tablet) 5 mg PO QDAY [facility] Last Admin: 07/04/21 09:08 Dose: 5 mg Documented by: Docusate Sodium (Docusate Sodium 100 Mg Capsule) 100 mg PO BID [facility] Last Admin: 07/05/21 09:14 Dose: Not Given Documented by: Escitalopram Oxalate (Escitalopram 20 Mg Tablet) 20 mg PO DAILY [facility] Last Admin: 07/04/21 09:14 Dose: 20 mg Documented by: Fluticasone Propionate (Fluticasone Propionate [place]) 1 spray NS DAILY [facility] Last Admin: 07/05/21 08:41 Dose: Not Given Documented by: Folic Acid (Folic Acid 1 Mg Tablet) 1 mg PO DAILY [facility] Last Admin: 07/04/21 09:10 Dose: 1 mg Documented by: Piperacillin Sod/Tazobactam (Sod 3.375 gm/ Dextrose) 50 mls @ 100 mls/hr IV Q6H [facility]; Protocol Last Infusion: 07/05/21 06:09 Dose: Infused Documented by: Ibuprofen (Ibuprofen 800 Mg Tablet) 800 mg PO TIDCC [facility]; Protocol Last Admin: 07/04/21 20:00 Dose: 800 mg Documented by: Levothyroxine Sodium (Levothyroxine 100 Mcg Tablet) 200 mcg PO ACB [facility] Last Admin: 07/05/21 07:01 Dose: 200 mcg Documented by: [place] Carbonate ([place] Carbonate 150 Mg Capsule) 300 mg PO BID [facility] Last Admin: 07/04/21 20:29 Dose: 300 mg Documented by: Loperamide HCl (Loperamide 2 Mg Capsule) 2 mg PO PRN PRN PRN Reason: Diarrhea Last Admin: 07/03/21 20:40 Dose: 2 mg Documented by: Magnesium Oxide (Magnesium Oxide 400 Mg Tablet) 400 mg PO QDAY [facility] Last Admin: 07/04/21 09:13 Dose: 400 mg Documented by: Meclizine HCl (Meclizine 25 Mg Tablet) 25 mg PO DAILYP PRN PRN Reason: Vertigo Omeprazole (Omeprazole 20 Mg Capsule) 20 mg PO QDAY [facility] Last Admin: 07/04/21 09:11 Dose: 20 mg Documented by: Ondansetron HCl (Ondansetron 4 Mg/2 Ml Vial) 4 mg IV Q6HP PRN PRN Reason: Nausea And Vomiting Oxybutynin Chloride (Oxybutynin Chloride 5 Mg Tablet) 10 mg PO QDAY [facility] Last Admin: 07/04/21 09:11 Dose: 10 mg Documented by: Oxycodone HCl (Oxycodone Hcl 5 Mg Tablet) 10 mg PO QIDP PRN PRN Reason: Pain Last Admin: 07/04/21 20:30 Dose: 10 mg Documented by: Potassium Chloride (Potassium Chloride 20 Meq Tablet) 20 meq PO QAMCC [facility] Last Admin: 07/04/21 09:10 Dose: 20 meq Documented by: Pregabalin (Pregabalin 150 Mg Capsule) 150 mg PO BID [facility] Last Admin: 07/04/21 20:29 Dose: 150 mg Documented by: Quetiapine Fumarate (Quetiapine 100 Mg Tablet) 400 mg PO [facility] Last Admin: 07/04/21 20:29 Dose: 400 mg Documented by: Senna (Sennosides 1 Tablet) 2 tab PO [facility] Last Admin: 07/04/21 20:31 Dose: Not Given Documented by: Sodium Chloride (0.9 % Sodium Chloride 10 Ml Syringe) 10 ml IV Q8 [facility] Last Admin: 07/05/21 05:53 Dose: 10 ml Documented by: Sumatriptan Succinate (Sumatriptan Succinate 50 Mg Tablet) 50 mg PO ONCE PRN PRN Reason: Headache Topiramate (Topiramate 25 Mg Tablet) 50 mg PO BID [facility] Last Admin: 07/04/21 20:30 Dose: 50 mg Documented by: Torsemide (Torsemide 10 Mg Tablet) 20 mg PO DAILY [facility] Last Admin: 07/04/21 09:12 Dose: 20 mg Documented by: Zinc Sulfate (Zinc Sulfate 50 Mg Capsule) 50 mg PO DAILY [facility] Last Admin: 07/04/21 09:10 Dose: 50 mg Documented by: Zolpidem Tartrate (Zolpidem 5 Mg Tablet) 5 mg PO HSP PRN PRN Reason: Insomnia Last Admin: 07/04/21 20:29 Dose: 5 mg Documented by: A/P Assessment and plan (1) Urinary tract infection: Status: Acute Qualifiers: Hematuria presence: without hematuria Urinary tract infection type: acute cystitis Qualified Code(s): N30.00 - Acute cystitis without hematuria (2) Cerebral palsy, unspecified: Status: Chronic (3) Acid reflux: Status: Chronic (4) Hypothyroidism: Status: Acute Narrative A/P Narrative: Assessment and plan: 1. Urinary tract infections: Inpatient MedSurg; ready to be discharged back to SNF Due to extended list of allergy profile as well as recurrent episode of UTI with multi resistance, will start with Zosyn. Will do 5-7 days total duration of therapy Blood culture, no growth to date Urine culture, growing providencia stuartii and gram negative bacillus Serial lactic acid Procalcitonin 0.27 CBC with auto differential in the morning to trend WBC Tylenol as needed fever 2. History of cerebral palsy: Continue Topamax for seizure prophylaxis 3. History of hypothyroidism: Continue thyroid replacement therapy 4. History of reflux: Continue oral PPI from home regiment 5. Sacral decubitus ulcer: Wound vac replacement and routine wound care as per wound care team 6. Macrocytic anemia: Hemoglobin 6.6-->10.7 after 2 unit pRBC transfusion on 07/03, now H/H stable Repeat cbc w/ auto diff in the morning to trend H/H GI prophylaxis: Continue oral PPI from home regiment DVT prophylaxis: SCDs CODE STATUS: Full code Prognosis: Stable Dispositions: Inpatient MedSurg; ready to be discharged back to SNF Time Spent With Patient Time: Total time spent is greater than 50% in coordination of care (as documented) at patient's floor/unit and/or counseling patient: QUALITY VTE Deep Vein Thrombosis/Pulmonary Embolism Present on Admission: No
[2021-07-05] MEDS: OXYBUTYNIN CHLORIDE 5 MG TABLET PO SCH (10:36)
[2021-07-05] MEDS: FOLIC ACID 1 MG TABLET PO SCH (10:37)
[2021-07-05] MEDS: TORSEMIDE 10 MG TABLET PO SCH (10:37)
[2021-07-05] MEDS: ASCORBIC ACID 500 MG TABLET PO SCH (10:37)
[2021-07-05] MEDS: MAGNESIUM OXIDE 400 MG TABLET PO SCH (10:37)
[2021-07-05] MEDS: ESCITALOPRAM 20 MG TABLET PO SCH (10:37)
[2021-07-05] MEDS: LOPERAMIDE 2 MG CAPSULE PO PRN ×2 (10:37→20:28)
[2021-07-05] MEDS: OMEPRAZOLE 20 MG CAPSULE PO SCH (10:37)
[2021-07-05] MEDS: POTASSIUM CHLORIDE 20 MEQ TABLET PO SCH (10:38)
[2021-07-05] MEDS: ZINC SULFATE 50 MG CAPSULE PO SCH (10:38)
[2021-07-05] MEDS: IBUPROFEN 800 MG TABLET PO SCH ×3 (10:38→20:28)
[2021-07-05] MEDS: TOPIRAMATE 25 MG TABLET PO SCH ×2 (10:38→20:27)
[2021-07-05] MEDS: PREGABALIN 150 MG CAPSULE PO SCH ×2 (10:39→20:28)
[2021-07-05] MEDS: LITHIUM CARBONATE 150 MG CAPSULE PO SCH ×2 (10:39→20:28)
[2021-07-05] MEDS: CYCLOBENZAPRINE 10 MG TABLET PO SCH (10:39)
[2021-07-05] MEDS: clonazePAM 1 MG TABLET PO SCH ×3 (10:39→20:29)
[2021-07-05] MEDS: QUEtiapine 100 MG TABLET PO SCH (20:28)
[2021-07-05] MEDS: SENNOSIDES 1 TABLET PO SCH (20:30)
[2021-07-06] MEDS: PIPERACILLIN SODIUM/TAZOBACTAM 3.375 GM in DEXTROSE 5% IN WATER 50 ML IV SCH ×4 (00:03→17:43)
[2021-07-06] MEDS: 0.9 % SODIUM CHLORIDE 10 ML SYRINGE IV SCH ×3 (05:35→21:21)
[2021-07-06 07:02] LABS: Basophils # (Auto) 0.03 K/mcL (0.00-0.30); Basophils % (Auto) 0.5 % (0.0-2.0); Eosinophils # (Auto) 0.35 K/mcL (0.00-0.70); Eosinophils % (Auto) 5.7 % (0.0-7.0); Hematocrit 31.1 % (34.1-44.9); Hemoglobin 9.2 g/dL (11.2-15.7); Lymphocytes # (Auto) 2.65 K/mcL (1.50-4.80); Lymphocytes % (Auto) 43.2 % (15.5-49.0); Mean Cell Volume 111.1 fL (80.0-100.0); Mean Corpuscular HGB Conc 29.6 g/dL (31.0-36.0); Monocytes # (Auto) 0.51 K/mcL (0.10-0.90); Monocytes % (Auto) 8.3 % (1.0-12.0); Neutrophils % (Auto) 42.3 % (38.0-78.0); Platelet Count 187 K/mcL (140-440); Red Cell Distribution Width 18.6 % (11.5-14.5); WBC 6.1 K/mcL (4.5-11.0)
[2021-07-06] MEDS: LEVOTHYROXINE 100 MCG TABLET PO SCH (07:05)
[2021-07-06] MEDS: LOPERAMIDE 2 MG CAPSULE PO PRN ×2 (07:06→10:25)
[2021-07-06 07:52] LABS: ALT/SGPT 16 U/L (<40); AST/SGOT 14 U/L (<32); Albumin 2.3 gm/dL (3.2-5.2); Albumin/Globulin Ratio 0.7 (1.0-2.3); Alkaline Phosphatase 142 U/L (39-117); Bilirubin,Total 0.2 mg/dL (0.1-1.0); Blood Urea Nitrogen 7 mg/dL (6-20); Calcium 8.8 mg/dL (8.6-10.4); Carbon Dioxide 23 mmol/L (22-30); Chloride 109 mmol/L (96-108); Globulin 3.2 gm/dL (2.2-3.7); Glomerular Filtration Rate 110; Glucose 84 mg/dL (70-105)
[2021-07-06] MEDS: PREGABALIN 150 MG CAPSULE PO SCH ×2 (09:50→21:21)
[2021-07-06] MEDS: ASCORBIC ACID 500 MG TABLET PO SCH (09:50)
[2021-07-06] MEDS: ZINC SULFATE 50 MG CAPSULE PO SCH (09:51)
[2021-07-06] MEDS: TORSEMIDE 10 MG TABLET PO SCH (09:51)
[2021-07-06] MEDS: FOLIC ACID 1 MG TABLET PO SCH (09:51)
[2021-07-06] MEDS: MAGNESIUM OXIDE 400 MG TABLET PO SCH (09:51)
[2021-07-06] MEDS: OXYBUTYNIN CHLORIDE 5 MG TABLET PO SCH (09:51)
[2021-07-06] MEDS: IBUPROFEN 800 MG TABLET PO SCH ×3 (09:51→16:22)
[2021-07-06] MEDS: clonazePAM 1 MG TABLET PO SCH ×3 (09:52→21:20)
[2021-07-06] MEDS: TOPIRAMATE 25 MG TABLET PO SCH ×2 (09:52→21:20)
[2021-07-06] MEDS: CYCLOBENZAPRINE 10 MG TABLET PO SCH (09:53)
[2021-07-06] MEDS: LITHIUM CARBONATE 150 MG CAPSULE PO SCH ×2 (09:54→21:20)
[2021-07-06] MEDS: DOCUSATE SODIUM 100 MG CAPSULE PO SCH ×2 (09:54→21:21)
[2021-07-06] MEDS: POTASSIUM CHLORIDE 20 MEQ TABLET PO SCH (09:54)
[2021-07-06] MEDS: FLUTICASONE PROPIONATE SPRAY.NAS NS SCH (09:55)
[2021-07-06] MEDS: ESCITALOPRAM 20 MG TABLET PO SCH (09:55)
[2021-07-06] MEDS: OMEPRAZOLE 20 MG CAPSULE PO SCH (09:55)
--- NOTE | 2021-07-06 11:59 | Internal Med Progress Note ---
SUBJECTIVE Subjective Patient information: Note initiated : 07/06/21 at 11:57 am Service Date, if different from initiated Date: [] Patient: Galina Solorzano a 45 y/o F admitted on 07/02/21 for lethergy, diaphoretic. Chief Complaint: [UTI] Interval history: History of present illness: Ms. Solorzano is a 45 year old F history of cerebral palsy, hypothyroidism, recurrent UTI, presenting with 1 day history of lethargy. Last episode of urinary tract infection was about a month ago. Patient is a [facility] and today she was noted by the nursing staff to be lethargic and she was being sent to our ED for further evaluations. Vital signs upon ED presentations were within normal limits. CBC and CMP pending. Urinalysis suggest the presence of urinary tract infections. Rest of the history is limited by the patient's clinical situations. 07/03: Afebrile overnight. Hemoglobin 7.6-->6.6. Blood and urine cultures no growth to date. No other major overnight events. Subjective not obtained due to clinical situations. 07/04: Afebrile overnight. Urine culture growing providencia stuartii and gram negative bacillus. Hemoglobin 6.6-->10.7 after 2 unit pRBC transfusion on 07/03. Denies fever or chills or sweating. c/o severe sacral pain during wound vac replacement. 07/05: Afebrile overnight. Urine culture growing providencia stuartii and gram negative bacillus. H/H stable. Denies fever or chills or sweating. Denies urinary symptoms such as dysuria. 07/06: Afebrile overnight. Urine culture growing providencia stuartii and gram negative bacillus. Blood culture no growth to date. H/H stable. Denies fever or chills or sweating. Denies urinary symptoms such as dysuria. Constitutional Vitals: Vital Signs Temp Pulse Resp BP Pulse Ox 36.1 C 16 L 16 127/85 93 07/06/21 07:25 07/06/21 07:25 07/06/21 07:25 07/06/21 07:25 07/06/21 07:25 Period Temp Pulse Resp BP Sys/Albert Pulse Ox Last 24 Hr 36.1 C-37.1 C 16-79 16-20 77-127/44-85 90-94 Intake and Output 07/05/21 07/06/21 07/06/21 21:59 05:59 13:59 Intake Total 760 50 890 Output Total 350 500 Balance 410 -450 890 Weight 100.879 kg Intake & Output: Intake & Output 07/05/21 07/06/21 07/06/21 21:59 05:59 13:59 Intake Total 760 50 890 Output Total 350 500 Balance 410 -450 890 Weight 100.879 kg Intake: IV 50 50 50 Zosyn 3.375 gm In Dextrose 5% 50 50 50 in Water 50 ml @ 100 mls/hr IV Q6H [facility] Rx#:[id number] Oral 710 840 Output: Urine Catheter Amount 350 500 Other: Meal Breakfast Percent of Meal Consumed 25% Feeding Ability Total Assistance Urine Appearance Clear Clear Clear Uretheral (Linder) Clear Urine Color Bright Yellow Bright Yellow Pale Uretheral (Linder) Pale Urine Odor Normal Stool Size Small Copious Stool Color Brown Brown Green Stool Consistency Loose Loose # Bowel Movements 1 # of times incontinent of 1 1 Bowels General appearance: cooperative and no acute distress Exam: lethargic Head Head exam: Present atraumatic and normocephalic Eye Eye exam: Present EOMI and PERRL ENT ENT exam: Present mucous membranes moist, normal exam and normal external ear exam Neck Neck exam: Present normal inspection; Absent lymphadenopathy, tenderness and thyromegaly Respiratory Respiratory exam: Absent accessory muscle use, respiratory distress and wheezes Cardiovascular Cardiovascular exam: Present normal rate and rhythm; Absent JVD GI/Abdominal GI/Abdominal exam: Present normal bowel sounds and soft; Absent organomegaly and tenderness Extremities Exam Extremities exam: Present full ROM, normal capillary refill and normal inspection; Absent tenderness Neurological Exam Neurological exam: Present alert, CN II-XII intact, motor sensory deficit and oriented X3 Additional comments: Bilateral lower extremities paralysis Psychiatric Psychiatric exam: Present normal affect and normal mood; Absent anxious and depressed Skin Skin exam: Present dry; Absent intact Additional comments: Stage 4 sacral decubitus ulcer covered by wound dressing OBJ DATA Labs CBC & Chem 7: 07/06/21 05:00 07/06/21 05:00 Labs: Abnormal Lab Results 07/06/21 07/06/21 07/05/21 05:00 05:00 06:14 RBC 2.80 L Hgb 9.2 L Hct 31.1 L MCV 111.1 H MCHC 29.6 L RDW 18.6 H MPV 11.0 H Chloride 109 H 110 H Carbon Dioxide Anion Gap 7.0 L 7.0 L Calcium Alkaline Phosphatase 142 H 167 H Total Protein 5.5 L 5.6 L Albumin 2.3 L 2.4 L Albumin/Globulin Ratio 0.7 L 0.8 L 07/05/21 07/04/21 07/04/21 06:14 05:58 05:58 RBC 3.27 L 3.31 L Hgb 10.3 L 10.7 L Hct MCV 107.0 H 103.3 H MCHC 29.4 L RDW 19.6 H 19.4 H MPV 12.1 H 11.7 H Chloride Carbon Dioxide 20 L Anion Gap Calcium 8.3 L Alkaline Phosphatase 165 H Total Protein 5.7 L Albumin 2.5 L Albumin/Globulin Ratio 0.8 L Meds: Medications Acetaminophen (Acetaminophen 325 Mg Tablet) 650 mg PO Q6HP PRN; Protocol PRN Reason: Per Pain Protocol/Fever > 101 Ascorbic Acid (Ascorbic Acid 500 Mg Tablet) 500 mg PO DAILY [facility] Last Admin: 07/06/21 09:50 Dose: 500 mg Documented by: Clonazepam (Clonazepam 1 Mg Tablet) 2 mg PO TID [facility] Last Admin: 07/06/21 09:52 Dose: 2 mg Documented by: Cyclobenzaprine HCl (Cyclobenzaprine 10 Mg Tablet) 5 mg PO QDAY [facility] Last Admin: 07/06/21 09:53 Dose: 5 mg Documented by: Docusate Sodium (Docusate Sodium 100 Mg Capsule) 100 mg PO BID [facility] Last Admin: 07/06/21 09:54 Dose: Not Given Documented by: Escitalopram Oxalate (Escitalopram 20 Mg Tablet) 20 mg PO DAILY [facility] Last Admin: 07/06/21 09:55 Dose: 20 mg Documented by: Fluticasone Propionate (Fluticasone Propionate [place].Papa) 1 spray NS DAILY [facility] Last Admin: 07/06/21 09:55 Dose: Not Given Documented by: Folic Acid (Folic Acid 1 Mg Tablet) 1 mg PO DAILY [facility] Last Admin: 07/06/21 09:51 Dose: 1 mg Documented by: Piperacillin Sod/Tazobactam (Sod 3.375 gm/ Dextrose) 50 mls @ 100 mls/hr IV Q6H [facility]; Protocol Last Infusion: 07/06/21 06:32 Dose: Infused Documented by: Ibuprofen (Ibuprofen 800 Mg Tablet) 800 mg PO TIDCC [facility]; Protocol Last Admin: 07/06/21 09:51 Dose: 800 mg Documented by: Levothyroxine Sodium (Levothyroxine 100 Mcg Tablet) 200 mcg PO ACB [facility] Last Admin: 07/06/21 07:05 Dose: 200 mcg Documented by: Casa Carbonate (Casa Carbonate 150 Mg Capsule) 300 mg PO BID [facility] Last Admin: 07/06/21 09:54 Dose: 300 mg Documented by: Loperamide HCl (Loperamide 2 Mg Capsule) 2 mg PO PRN PRN PRN Reason: Diarrhea Last Admin: 07/06/21 10:25 Dose: 2 mg Documented by: Magnesium Oxide (Magnesium Oxide 400 Mg Tablet) 400 mg PO QDAY [facility] Last Admin: 07/06/21 09:51 Dose: 400 mg Documented by: Meclizine HCl (Meclizine 25 Mg Tablet) 25 mg PO DAILYP PRN PRN Reason: Vertigo Omeprazole (Omeprazole 20 Mg Capsule) 20 mg PO QDAY [facility] Last Admin: 07/06/21 09:55 Dose: 20 mg Documented by: Ondansetron HCl (Ondansetron 4 Mg/2 Ml Vial) 4 mg IV Q6HP PRN PRN Reason: Nausea And Vomiting Oxybutynin Chloride (Oxybutynin Chloride 5 Mg Tablet) 10 mg PO QDAY [facility] Last Admin: 07/06/21 09:51 Dose: 10 mg Documented by: Oxycodone HCl (Oxycodone Hcl 5 Mg Tablet) 10 mg PO QIDP PRN PRN Reason: Pain Last Admin: 07/04/21 20:30 Dose: 10 mg Documented by: Potassium Chloride (Potassium Chloride 20 Meq Tablet) 20 meq PO QAMCC [facility] Last Admin: 07/06/21 09:54 Dose: 20 meq Documented by: Pregabalin (Pregabalin 150 Mg Capsule) 150 mg PO BID [facility] Last Admin: 07/06/21 09:50 Dose: 150 mg Documented by: Quetiapine Fumarate (Quetiapine 100 Mg Tablet) 400 mg PO [facility] Last Admin: 07/05/21 20:28 Dose: 400 mg Documented by: Senna (Sennosides 1 Tablet) 2 tab PO [facility] Last Admin: 07/05/21 20:30 Dose: Not Given Documented by: Sodium Chloride (0.9 % Sodium Chloride 10 Ml Syringe) 10 ml IV Q8 [facility] Last Admin: 07/06/21 05:35 Dose: 10 ml Documented by: Sumatriptan Succinate (Sumatriptan Succinate 50 Mg Tablet) 50 mg PO ONCE PRN PRN Reason: Headache Topiramate (Topiramate 25 Mg Tablet) 50 mg PO BID [facility] Last Admin: 07/06/21 09:52 Dose: 50 mg Documented by: Torsemide (Torsemide 10 Mg Tablet) 20 mg PO DAILY [facility] Last Admin: 07/06/21 09:51 Dose: 20 mg Documented by: Zinc Sulfate (Zinc Sulfate 50 Mg Capsule) 50 mg PO DAILY [facility] Last Admin: 07/06/21 09:51 Dose: 50 mg Documented by: Zolpidem Tartrate (Zolpidem 5 Mg Tablet) 5 mg PO HSP PRN PRN Reason: Insomnia Last Admin: 07/04/21 20:29 Dose: 5 mg Documented by: A/P Assessment and plan (1) Urinary tract infection: Status: Acute Qualifiers: Hematuria presence: without hematuria Urinary tract infection type: acute cystitis Qualified Code(s): N30.00 - Acute cystitis without hematuria (2) Cerebral palsy, unspecified: Status: Chronic (3) Acid reflux: Status: Chronic (4) Hypothyroidism: Status: Acute Narrative A/P Narrative: Assessment and plan: 1. Urinary tract infections: Inpatient MedSurg; ready to be discharged back to SNF Due to extended list of allergy profile as well as recurrent episode of UTI with multi resistance, will start with Zosyn. Will do 5-7 days total duration of therapy Blood culture, no growth to date Urine culture, growing providencia stuartii and gram negative bacillus Serial lactic acid Procalcitonin 0.27 CBC with auto differential in the morning to trend WBC Tylenol as needed fever 2. History of cerebral palsy: Continue Topamax for seizure prophylaxis 3. History of hypothyroidism: Continue thyroid replacement therapy 4. History of reflux: Continue oral PPI from home regiment 5. Sacral decubitus ulcer: Wound vac replacement and routine wound care as per wound care team 6. Macrocytic anemia: Hemoglobin 6.6-->10.7 after 2 unit pRBC transfusion on 07/03, now H/H stable Repeat cbc w/ auto diff in the morning to trend H/H GI prophylaxis: Continue oral PPI from home regiment DVT prophylaxis: SCDs CODE STATUS: Full code Prognosis: Stable Dispositions: Inpatient MedSurg; ready to be discharged back to SNF Time Spent With Patient Time: Total time spent is greater than 50% in coordination of care (as documented) at patient's floor/unit and/or counseling patient: QUALITY VTE Deep Vein Thrombosis/Pulmonary Embolism Present on Admission: No
[2021-07-06] MEDS: QUEtiapine 100 MG TABLET PO SCH (21:20)
[2021-07-06] MEDS: SENNOSIDES 1 TABLET PO SCH (21:21)
[2021-07-07] MEDS: PIPERACILLIN SODIUM/TAZOBACTAM 3.375 GM in DEXTROSE 5% IN WATER 50 ML IV SCH ×4 (00:07→17:27)
[2021-07-07] MEDS: 0.9 % SODIUM CHLORIDE 10 ML SYRINGE IV SCH ×3 (05:26→22:14)
[2021-07-07 07:18] LABS: Basophils # (Auto) 0.02 K/mcL (0.00-0.30); Basophils % (Auto) 0.3 % (0.0-2.0); Eosinophils # (Auto) 0.43 K/mcL (0.00-0.70); Eosinophils % (Auto) 6.9 % (0.0-7.0); Hematocrit 34.2 % (34.1-44.9); Hemoglobin 10.2 g/dL (11.2-15.7); Lymphocytes # (Auto) 2.22 K/mcL (1.50-4.80); Lymphocytes % (Auto) 35.7 % (15.5-49.0); Mean Cell Volume 108.2 fL (80.0-100.0); Mean Corpuscular HGB Conc 29.8 g/dL (31.0-36.0); Mean Platelet Volume 11.2 fL (7.4-10.4); Monocytes # (Auto) 0.41 K/mcL (0.10-0.90); Monocytes % (Auto) 6.6 % (1.0-12.0); Neutrophils % (Auto) 50.5 % (38.0-78.0); Platelet Count 215 K/mcL (140-440); RBC 3.16 M/mcL (3.59-5.38); Red Cell Distribution Width 17.9 % (11.5-14.5); WBC 6.2 K/mcL (4.5-11.0)
[2021-07-07 07:44] LABS: ALT/SGPT 26 U/L (<40); AST/SGOT 36 U/L (<32); Albumin 2.6 gm/dL (3.2-5.2); Albumin/Globulin Ratio 0.8 (1.0-2.3); Alkaline Phosphatase 167 U/L (39-117); Bilirubin,Total 0.2 mg/dL (0.1-1.0); Blood Urea Nitrogen 6 mg/dL (6-20); Calcium 9.1 mg/dL (8.6-10.4); Carbon Dioxide 22 mmol/L (22-30); Chloride 109 mmol/L (96-108); Globulin 3.4 gm/dL (2.2-3.7); Glomerular Filtration Rate 110; Glucose 93 mg/dL (70-105)
[2021-07-07] MEDS: LEVOTHYROXINE 100 MCG TABLET PO SCH (07:54)
[2021-07-07] MEDS: CYCLOBENZAPRINE 10 MG TABLET PO SCH (08:09)
[2021-07-07] MEDS: DOCUSATE SODIUM 100 MG CAPSULE PO SCH ×2 (08:09→22:14)
[2021-07-07] MEDS: LITHIUM CARBONATE 150 MG CAPSULE PO SCH ×2 (08:10→22:13)
[2021-07-07] MEDS: PREGABALIN 150 MG CAPSULE PO SCH ×2 (08:10→22:13)
[2021-07-07] MEDS: TORSEMIDE 10 MG TABLET PO SCH (08:10)
[2021-07-07] MEDS: ASCORBIC ACID 500 MG TABLET PO SCH (08:10)
[2021-07-07] MEDS: clonazePAM 1 MG TABLET PO SCH ×3 (08:10→22:13)
[2021-07-07] MEDS: IBUPROFEN 800 MG TABLET PO SCH ×3 (08:10→17:28)
[2021-07-07] MEDS: MAGNESIUM OXIDE 400 MG TABLET PO SCH (08:10)
[2021-07-07] MEDS: TOPIRAMATE 25 MG TABLET PO SCH ×2 (08:10→22:13)
[2021-07-07] MEDS: OXYBUTYNIN CHLORIDE 5 MG TABLET PO SCH (08:10)
[2021-07-07] MEDS: OMEPRAZOLE 20 MG CAPSULE PO SCH (08:11)
[2021-07-07] MEDS: ESCITALOPRAM 20 MG TABLET PO SCH (08:11)
[2021-07-07] MEDS: FLUTICASONE PROPIONATE SPRAY.NAS NS SCH (08:11)
[2021-07-07] MEDS: POTASSIUM CHLORIDE 20 MEQ TABLET PO SCH (08:11)
[2021-07-07] MEDS: ZINC SULFATE 50 MG CAPSULE PO SCH (08:11)
[2021-07-07] MEDS: FOLIC ACID 1 MG TABLET PO SCH (08:11)
--- NOTE | 2021-07-07 12:19 | Internal Med Progress Note ---
SUBJECTIVE Subjective Patient information: Note initiated : 07/07/21 at 12:16 pm Service Date, if different from initiated Date: [] Patient: Galina Solorzano a 45 y/o F admitted on 07/02/21 for lethergy, diaphoretic. Chief Complaint: [UTI, sacral decubitus ulcer] Interval history: History of present illness: Ms. Solorzano is a 45 year old F history of cerebral palsy, hypothyroidism, recurrent UTI, presenting with 1 day history of lethargy. Last episode of urinary tract infection was about a month ago. Patient is a care home resident and today she was noted by the nursing staff to be lethargic and she was being sent to our ED for further evaluations. Vital signs upon ED presentations were within normal limits. CBC and CMP pending. Urinalysis suggest the presence of urinary tract infections. Rest of the history is limited by the patient's clinical situations. 07/03: Afebrile overnight. Hemoglobin 7.6-->6.6. Blood and urine cultures no growth to date. No other major overnight events. Subjective not obtained due to clinical situations. 07/04: Afebrile overnight. Urine culture growing providencia stuartii and gram negative bacillus. Hemoglobin 6.6-->10.7 after 2 unit pRBC transfusion on 07/03. Denies fever or chills or sweating. c/o severe sacral pain during wound vac replacement. 07/05: Afebrile overnight. Urine culture growing providencia stuartii and gram negative bacillus. H/H stable. Denies fever or chills or sweating. Denies urinary symptoms such as dysuria. 07/06: Afebrile overnight. Urine culture growing providencia stuartii and gram negative bacillus. Blood culture no growth to date. H/H stable. Denies fever or chills or sweating. Denies urinary symptoms such as dysuria. 07/07: Afebrile overnight. Urine culture growing providencia stuartii and gram negative bacillus. Blood culture no growth to date. H/H stable. Denies fever or chills or sweating. Denies urinary symptoms such as dysuria. c/o general body weakness. Constitutional Vitals: Vital Signs Temp Pulse Resp BP Pulse Ox 36.5 C 91 H 18 133/89 92 07/07/21 12:00 07/07/21 12:00 07/07/21 12:00 07/07/21 08:00 07/07/21 12:00 Period Temp Pulse Resp BP Sys/Albert Pulse Ox Last 24 Hr 36.1 C-37.1 C 70-96 18-20 118-133/69-89 92-94 Intake and Output 07/06/21 07/07/21 07/07/21 21:59 05:59 13:59 Intake Total 100 50 50 Output Total 950 600 Balance -850 -550 50 Weight 101.188 kg Intake & Output: Intake & Output 07/06/21 07/07/21 07/07/21 21:59 05:59 13:59 Intake Total 100 50 50 Output Total 950 600 Balance -850 -550 50 Weight 101.188 kg Intake: IV 100 50 50 Zosyn 3.375 gm In Dextrose 5% 100 50 50 in Water 50 ml @ 100 mls/hr IV Q6H [facility] Rx#:[id number] Output: Urine Catheter Amount 950 600 Other: Urine Appearance Clear Clear Uretheral (Linder) Clear Clear Urine Color Bright Yellow Bright Yellow Uretheral (Linder) Pale Pale Urine Odor Normal Stool Size Large Stool Color Brown Stool Consistency Loose # of times incontinent of 1 Bowels General appearance: cooperative and no acute distress Exam: lethargic Head Head exam: Present atraumatic and normocephalic Eye Eye exam: Present EOMI and PERRL ENT ENT exam: Present mucous membranes moist, normal exam and normal external ear exam Neck Neck exam: Present normal inspection; Absent lymphadenopathy, tenderness and thyromegaly Respiratory Respiratory exam: Absent accessory muscle use, respiratory distress and wheezes Cardiovascular Cardiovascular exam: Present normal rate and rhythm; Absent JVD GI/Abdominal GI/Abdominal exam: Present normal bowel sounds and soft; Absent organomegaly and tenderness Additional comments: Linder catheter in place Extremities Exam Extremities exam: Present full ROM, normal capillary refill and normal inspection; Absent tenderness Neurological Exam Neurological exam: Present alert, CN II-XII intact, motor sensory deficit and oriented X3 Psychiatric Psychiatric exam: Present normal affect and normal mood; Absent anxious and depressed Skin Skin exam: Present dry; Absent intact Additional comments: Stage IV sacral decubitus ulcer covered with wound dressing OBJ DATA Labs CBC & Chem 7: 07/07/21 06:19 07/07/21 06:19 Labs: Abnormal Lab Results 07/07/21 07/07/21 07/06/21 06:19 06:19 05:00 RBC 3.16 L Hgb 10.2 L Hct MCV 108.2 H MCHC 29.8 L RDW 17.9 H MPV 11.2 H Chloride 109 H 109 H Anion Gap 7.0 L AST 36 H Alkaline Phosphatase 167 H 142 H Total Protein 5.5 L Albumin 2.6 L 2.3 L Albumin/Globulin Ratio 0.8 L 0.7 L 07/06/21 07/05/21 07/05/21 05:00 06:14 06:14 RBC 2.80 L 3.27 L Hgb 9.2 L 10.3 L Hct 31.1 L MCV 111.1 H 107.0 H MCHC 29.6 L 29.4 L RDW 18.6 H 19.6 H MPV 11.0 H 12.1 H Chloride 110 H Anion Gap 7.0 L AST Alkaline Phosphatase 167 H Total Protein 5.6 L Albumin 2.4 L Albumin/Globulin Ratio 0.8 L Meds: Medications Acetaminophen (Acetaminophen 325 Mg Tablet) 650 mg PO Q6HP PRN; Protocol PRN Reason: Per Pain Protocol/Fever > 101 Ascorbic Acid (Ascorbic Acid 500 Mg Tablet) 500 mg PO DAILY [facility] Last Admin: 07/07/21 08:10 Dose: 500 mg Documented by: Clonazepam (Clonazepam 1 Mg Tablet) 2 mg PO TID [facility] Last Admin: 07/07/21 08:10 Dose: 2 mg Documented by: Cyclobenzaprine HCl (Cyclobenzaprine 10 Mg Tablet) 5 mg PO QDAY [facility] Last Admin: 07/07/21 08:09 Dose: 5 mg Documented by: Docusate Sodium (Docusate Sodium 100 Mg Capsule) 100 mg PO BID [facility] Last Admin: 07/07/21 08:09 Dose: Not Given Documented by: Escitalopram Oxalate (Escitalopram 20 Mg Tablet) 20 mg PO DAILY [facility] Last Admin: 07/07/21 08:11 Dose: 20 mg Documented by: Fluticasone Propionate (Fluticasone Propionate [email or web address]) 1 spray NS DAILY [facility] Last Admin: 07/07/21 08:11 Dose: Not Given Documented by: Folic Acid (Folic Acid 1 Mg Tablet) 1 mg PO DAILY [facility] Last Admin: 07/07/21 08:11 Dose: 1 mg Documented by: Piperacillin Sod/Tazobactam (Sod 3.375 gm/ Dextrose) 50 mls @ 100 mls/hr IV Q6H [facility]; Protocol Last Infusion: 07/07/21 06:00 Dose: Infused Documented by: Ibuprofen (Ibuprofen 800 Mg Tablet) 800 mg PO TIDCC [facility]; Protocol Last Admin: 07/07/21 08:10 Dose: 800 mg Documented by: Levothyroxine Sodium (Levothyroxine 100 Mcg Tablet) 200 mcg PO ACB [facility] Last Admin: 07/07/21 07:54 Dose: 200 mcg Documented by: Omao Carbonate (Omao Carbonate 150 Mg Capsule) 300 mg PO BID [facility] Last Admin: 07/07/21 08:10 Dose: 300 mg Documented by: Loperamide HCl (Loperamide 2 Mg Capsule) 2 mg PO PRN PRN PRN Reason: Diarrhea Last Admin: 07/06/21 10:25 Dose: 2 mg Documented by: Magnesium Oxide (Magnesium Oxide 400 Mg Tablet) 400 mg PO QDAY [facility] Last Admin: 07/07/21 08:10 Dose: 400 mg Documented by: Meclizine HCl (Meclizine 25 Mg Tablet) 25 mg PO DAILYP PRN PRN Reason: Vertigo Omeprazole (Omeprazole 20 Mg Capsule) 20 mg PO QDAY [facility] Last Admin: 07/07/21 08:11 Dose: 20 mg Documented by: Ondansetron HCl (Ondansetron 4 Mg/2 Ml Vial) 4 mg IV Q6HP PRN PRN Reason: Nausea And Vomiting Oxybutynin Chloride (Oxybutynin Chloride 5 Mg Tablet) 10 mg PO QDAY [facility] Last Admin: 07/07/21 08:10 Dose: 10 mg Documented by: Oxycodone HCl (Oxycodone Hcl 5 Mg Tablet) 10 mg PO QIDP PRN PRN Reason: Pain Last Admin: 07/04/21 20:30 Dose: 10 mg Documented by: Potassium Chloride (Potassium Chloride 20 Meq Tablet) 20 meq PO QAMCC [facility] Last Admin: 07/07/21 08:11 Dose: 20 meq Documented by: Pregabalin (Pregabalin 150 Mg Capsule) 150 mg PO BID [facility] Last Admin: 07/07/21 08:10 Dose: 150 mg Documented by: Quetiapine Fumarate (Quetiapine 100 Mg Tablet) 400 mg PO HS [facility] Last Admin: 07/06/21 21:20 Dose: 400 mg Documented by: Senna (Sennosides 1 Tablet) 2 tab PO [facility] Last Admin: 07/06/21 21:21 Dose: Not Given Documented by: Sodium Chloride (0.9 % Sodium Chloride 10 Ml Syringe) 10 ml IV Q8 [facility] Last Admin: 07/07/21 05:26 Dose: 10 ml Documented by: Sumatriptan Succinate (Sumatriptan Succinate 50 Mg Tablet) 50 mg PO ONCE PRN PRN Reason: Headache Topiramate (Topiramate 25 Mg Tablet) 50 mg PO BID [facility] Last Admin: 07/07/21 08:10 Dose: 50 mg Documented by: Torsemide (Torsemide 10 Mg Tablet) 20 mg PO DAILY [facility] Last Admin: 07/07/21 08:10 Dose: 20 mg Documented by: Zinc Sulfate (Zinc Sulfate 50 Mg Capsule) 50 mg PO DAILY [facility] Last Admin: 07/07/21 08:11 Dose: 50 mg Documented by: Zolpidem Tartrate (Zolpidem 5 Mg Tablet) 5 mg PO HSP PRN PRN Reason: Insomnia Last Admin: 07/04/21 20:29 Dose: 5 mg Documented by: A/P Assessment and plan (1) Urinary tract infection: Status: Acute Qualifiers: Hematuria presence: without hematuria Urinary tract infection type: acute cystitis Qualified Code(s): N30.00 - Acute cystitis without hematuria (2) Cerebral palsy, unspecified: Status: Chronic (3) Acid reflux: Status: Chronic (4) Hypothyroidism: Status: Acute Narrative A/P Narrative: Assessment and plan: 1. Urinary tract infections: Inpatient MedSurg Due to extended list of allergy profile as well as recurrent episode of UTI with multi resistance, will start with Zosyn. Will do 5-7 days total duration of therapy Blood culture, no growth to date Urine culture, growing providencia stuartii and gram negative bacillus Serial lactic acid Procalcitonin 0.27 CBC with auto differential in the morning to trend WBC Tylenol as needed fever 2. History of cerebral palsy: Continue Topamax for seizure prophylaxis 3. History of hypothyroidism: Continue thyroid replacement therapy 4. History of reflux: Continue oral PPI from home regiment 5. Sacral decubitus ulcer: Wound vac replacement and routine wound care as per wound care team 6. Macrocytic anemia: Hemoglobin 6.6-->10.7 after 2 unit pRBC transfusion on 07/03, now H/H stable Repeat cbc w/ auto diff in the morning to trend H/H GI prophylaxis: Continue oral PPI from home regiment DVT prophylaxis: SCDs CODE STATUS: Full code Prognosis: Stable Dispositions: Inpatient MedSurg Time Spent With Patient Time: Total time spent is greater than 50% in coordination of care (as documented) at patient's floor/unit and/or counseling patient: QUALITY VTE Deep Vein Thrombosis/Pulmonary Embolism Present on Admission: No
[2021-07-07] MEDS: QUEtiapine 100 MG TABLET PO SCH (22:13)
[2021-07-07] MEDS: SENNOSIDES 1 TABLET PO SCH (22:14)
[2021-07-08] MEDS: PIPERACILLIN SODIUM/TAZOBACTAM 3.375 GM in DEXTROSE 5% IN WATER 50 ML IV SCH ×3 (00:10→11:56)
[2021-07-08] MEDS: 0.9 % SODIUM CHLORIDE 10 ML SYRINGE IV SCH (05:40)
[2021-07-08] MEDS: LEVOTHYROXINE 100 MCG TABLET PO SCH (07:28)
[2021-07-08] MEDS: IBUPROFEN 800 MG TABLET PO SCH ×2 (07:29→11:56)
[2021-07-08] MEDS: POTASSIUM CHLORIDE 20 MEQ TABLET PO SCH (07:29)
[2021-07-08 07:47] LABS: Basophils # (Auto) 0.02 K/mcL (0.00-0.30); Basophils % (Auto) 0.4 % (0.0-2.0); Eosinophils # (Auto) 0.29 K/mcL (0.00-0.70); Eosinophils % (Auto) 5.7 % (0.0-7.0); Hematocrit 32.5 % (34.1-44.9); Hemoglobin 9.5 g/dL (11.2-15.7); Lymphocytes # (Auto) 1.94 K/mcL (1.50-4.80); Lymphocytes % (Auto) 37.8 % (15.5-49.0); Mean Corpuscular HGB Conc 29.2 g/dL (31.0-36.0); Mean Platelet Volume 11.2 fL (7.4-10.4); Monocytes # (Auto) 0.43 K/mcL (0.10-0.90); Monocytes % (Auto) 8.4 % (1.0-12.0); Neutrophils % (Auto) 47.7 % (38.0-78.0); Platelet Count 225 K/mcL (140-440); RBC 3.01 M/mcL (3.59-5.38); Red Cell Distribution Width 17.6 % (11.5-14.5); WBC 5.1 K/mcL (4.5-11.0)
[2021-07-08 08:29] LABS: ALT/SGPT 54 U/L (<40); AST/SGOT 75 U/L (<32); Albumin 2.7 gm/dL (3.2-5.2); Albumin/Globulin Ratio 0.8 (1.0-2.3); Alkaline Phosphatase 142 U/L (39-117); Bilirubin,Total 0.2 mg/dL (0.1-1.0); Blood Urea Nitrogen 6 mg/dL (6-20); Calcium 9.4 mg/dL (8.6-10.4); Carbon Dioxide 24 mmol/L (22-30); Chloride 112 mmol/L (96-108); Globulin 3.4 gm/dL (2.2-3.7); Glomerular Filtration Rate 110; Glucose 82 mg/dL (70-105)
[2021-07-08] MEDS: DOCUSATE SODIUM 100 MG CAPSULE PO SCH (09:58)
[2021-07-08] MEDS: FLUTICASONE PROPIONATE SPRAY.NAS NS SCH (10:00)
[2021-07-08] MEDS: PREGABALIN 150 MG CAPSULE PO SCH (10:09)
[2021-07-08] MEDS: TOPIRAMATE 25 MG TABLET PO SCH (10:09)
[2021-07-08] MEDS: OMEPRAZOLE 20 MG CAPSULE PO SCH (10:09)
[2021-07-08] MEDS: ZINC SULFATE 50 MG CAPSULE PO SCH (10:09)
[2021-07-08] MEDS: ASCORBIC ACID 500 MG TABLET PO SCH (10:09)
[2021-07-08] MEDS: clonazePAM 1 MG TABLET PO SCH (10:10)
[2021-07-08] MEDS: LITHIUM CARBONATE 150 MG CAPSULE PO SCH (10:10)
[2021-07-08] MEDS: TORSEMIDE 10 MG TABLET PO SCH (10:10)
[2021-07-08] MEDS: CYCLOBENZAPRINE 10 MG TABLET PO SCH (10:10)
[2021-07-08] MEDS: OXYBUTYNIN CHLORIDE 5 MG TABLET PO SCH (10:10)
[2021-07-08] MEDS: ESCITALOPRAM 20 MG TABLET PO SCH (10:11)
[2021-07-08] MEDS: MAGNESIUM OXIDE 400 MG TABLET PO SCH (10:11)
[2021-07-08] MEDS: FOLIC ACID 1 MG TABLET PO SCH (10:11)
--- NOTE | 2021-07-08 10:37 | Discharge Summary ---
Discharge Provider Provider Patient information: Note initiated : 07/08/21 at 10:34 am Service Date, if different from initiated Date: [] Patient: Galina Solorzano a 45 y/o F admitted on 07/02/21 for lethergy, diaphoretic. Chief Complaint: [UTI] History of present illness: Ms. Solorzano is a 45 year old F history of cerebral palsy, hypothyroidism, recurrent UTI, presenting with 1 day history of lethargy. Last episode of urinary tract infection was about a month ago. Patient is a snf resident and today she was noted by the nursing staff to be lethargic and she was being sent to our ED for further evaluations. Vital signs upon ED presentations were within normal limits. CBC and CMP pending. Urinalysis suggest the presence of urinary tract infections. Rest of the history is limited by the patient's clinical situations. Date of admission: 07/02/21 20:20 Discharge date: 07/08/21 Primary care physician: Brad Beasley Consults: 07/02/21 Consult to Physician [CONS] Stat Comment: Consulting Provider: Louis Anderson Reason For Exam: Physician to Consult 07/04/21 13:41 Consult to Physician [CONS] Routine Comment: chronic Stage IV coccyx wound Consulting Provider: Colin Sanchez Reason For Exam: Physician to Consult Discharge Meds Discharge Medications Home Medications fluticasone propionate 50 mcg/actuation nasal spray,suspension 50 mcg INTRANASAL DAILY g 05/01/15 [History Confirmed 07/02/21 Last Taken Unknown] ibuprofen 800 mg tablet 800 mg PO .COMPLEX tab 05/01/15 [History Confirmed 07/02/21 Last Taken Unknown] omeprazole 20 mg capsule,delayed release 20 mg PO QDAY cap 05/01/15 [History Confirmed 07/02/21 Last Taken Unknown] ascorbate calcium (vitamin C) 500 mg tablet 500 mg PO QDAY 04/18/19 [History Confirmed 07/02/21 Last Taken Unknown] cyclobenzaprine 5 mg tablet 5 mg PO QDAY tab 04/18/19 [History Confirmed 07/02/21 Last Taken Unknown] docusate sodium 100 mg capsule 100 mg PO BID 04/18/19 [History Confirmed 07/02/21 Last Taken Unknown] folic acid 800 mcg tablet 0.8 mg PO QDAY 04/18/19 [History Confirmed 07/02/21 Last Taken Unknown] lithium carbonate 300 mg tablet,extended release 300 mg PO BID tab 04/18/19 [History Confirmed 07/02/21 Last Taken Unknown] magnesium oxide 400 mg (241.3 mg magnesium) tablet 400 mg PO QDAY tab 04/18/19 [History Confirmed 07/02/21 Last Taken Unknown] meclizine 25 mg tablet 25 mg PO QDAY PRN 04/18/19 [History Confirmed 07/02/21 L ast Taken Unknown] ondansetron 4 mg disintegrating tablet 4 mg PO ONCE tab 04/18/19 [History Confirmed 07/02/21 Last Taken Unknown] oxybutynin chloride 10 mg tablet,extended release 24 hr 10 mg PO QDAY 04/18/19 [History Confirmed 07/02/21 Last Taken Unknown] potassium chloride 20 mEq tablet,extended release 20 meq PO QDAY 04/18/19 [History Confirmed 07/02/21 Last Taken Unknown] sennosides 8.6 mg tablet 8.6 mg PO ONCE PRN tab 04/18/19 [History Confirmed 07/02/21 Last Taken Unknown] sumatriptan succinate 50 mg tablet 50 mg PO ONCE PRN tab 04/18/19 [History Confirmed 07/02/21 Last Taken Unknown] topiramate 50 mg tablet 50 mg PO BID 04/18/19 [History Confirmed 07/02/21 Last Taken Unknown] torsemide 20 mg tablet 20 mg PO QDAY 04/18/19 [History Confirmed 07/02/21 Last Taken Unknown] zinc 50 mg tablet 50 mg PO QDAY 04/18/19 [History Confirmed 07/02/21 Last Taken Unknown] clonazepam 2 mg tablet 2 mg PO TID 05/17/19 [History Confirmed 07/02/21 Last Taken Unknown] levothyroxine 200 mcg capsule 200 mcg PO QDAY 05/17/19 [History Confirmed 07/02/21 Last Taken Unknown] oxycodone 10 mg tablet 10 mg PO QID tab 05/17/19 [History Confirmed 07/02/21 Last Taken Unknown] oxycodone 5 mg capsule 5 mg PO QDAY PRN cap 05/17/19 [History Confirmed 07/02/21 Last Taken Unknown] pregabalin 150 mg capsule 150 mg PO BID 05/17/19 [History Confirmed 07/02/21 Last Taken Unknown] quetiapine 400 mg tablet 400 mg PO QHS tab 05/17/19 [History Confirmed 07/02/21 Last Taken Unknown] alendronate 70 mg PO MONTHLY 07/02/21 [History Confirmed 07/02/21 Last Taken Unknown] escitalopram oxalate 20 mg PO DAILY 07/02/21 [History Confirmed 07/02/21 Last Taken Unknown] COURSE Hospital Course Hospital course: 07/03: Afebrile overnight. Hemoglobin 7.6-->6.6. Blood and urine cultures no growth to date. No other major overnight events. Subjective not obtained due to clinical situations. 07/04: Afebrile overnight. Urine culture growing providencia stuartii and gram negative bacillus. Hemoglobin 6.6-->10.7 after 2 unit pRBC transfusion on 07/03. Denies fever or chills or sweating. c/o severe sacral pain during wound vac replace ment. 07/05: Afebrile overnight. Urine culture growing providencia stuartii and gram negative bacillus. H/H stable. Denies fever or chills or sweating. Denies urinary symptoms such as dysuria. 07/06: Afebrile overnight. Urine culture growing providencia stuartii and gram negative bacillus. Blood culture no growth to date. H/H stable. Denies fever or chills or sweating. Denies urinary symptoms such as dysuria. 07/07: Afebrile overnight. Urine culture growing providencia stuartii and gram negative bacillus. Blood culture no growth to date. H/H stable. Denies fever or chills or sweating. Denies urinary symptoms such as dysuria. c/o general body weakness. 07/08: Finished 7 days of Zosyn. Been on BID dressing change of her sacral decubitus ulcer wound. Reached clinical stability and eventually be discharged back to SNF on 07/08. Discharge diagnosis: UTI Time Spent with Patient Time attestation: Total time spent providing and/or coordinating discharge services: 07/03: Afebrile overnight. Hemoglobin 7.6-->6.6. Blood and urine cultures no growth to date. No other major overnight events. Subjective not obtained due to clinical situations. 07/04: Afebrile overnight. Urine culture growing providencia stuartii and gram negative bacillus. Hemoglobin 6.6-->10.7 after 2 unit pRBC transfusion on 07/03. Denies fever or chills or sweating. c/o severe sacral pain during wound vac replacement. 07/05: Afebrile overnight. Urine culture growing providencia stuartii and gram negative bacillus. H/H stable. Denies fever or chills or sweating. Denies urinary symptoms such as dysuria. 07/06: Afebrile overnight. Urine culture growing providencia stuartii and gram negative bacillus. Blood culture no growth to date. H/H stable. Denies fever or chills or sweating. Denies urinary symptoms such as dysuria. 07/07: Afebrile overnight. Urine culture growing providencia stuartii and gram negative bacillus. Blood culture no growth to date. H/H stable. Denies fever or chills or sweating. Denies urinary symptoms such as dysuria. c/o general body weakness. 07/08: Finished 7 days of Zosyn. Been on BID dressing change of her sacral decubitus ulcer wound. Reached clinical stability and eventually be discharged back to SNF on 07/08. EXAM Constitutional Vitals: Temp Pulse Resp BP Pulse Ox 36.3 C 80 22 97/57 93 07/08/21 07:01 07/08/21 08:00 07/08/21 08:00 07/08/21 03:26 07/08/21 08:00 General appearance: cooperative and no acute distress Head Head exam: Present atraumatic and normocephalic Eye Eye exam: Present EOMI and PERRL ENT ENT exam: Present mucous membranes moist, normal exam and normal external ear exam Neck Neck exam: Present normal inspection; Absent lymphadenopathy, tenderness and thyromegaly Respiratory Respiratory exam: Absent accessory muscle use, respiratory distress and wheezes Cardiovascular Cardiovascular exam: Present normal rate and rhythm; Absent JVD GI/Abdominal GI/Abdominal exam: Present normal bowel sounds and soft; Absent organomegaly and tenderness Additional comments: Linder catheter in place Extremities Exam Extremities exam: Present full ROM, normal capillary refill and normal inspection; Absent tenderness Neurological Exam Neurological exam: Present alert, CN II-XII intact, motor sensory deficit and oriented X3 Psychiatric Psychiatric exam: Present normal affect and normal mood; Absent anxious and depressed Skin Skin exam: Present dry; Absent intact Additional comments: Sacral decubitus ulcer stage 4 covered by wound dressing Discharge Data Data Completed and Pending Labs on day of discharge: Labs from last 24 hours 07/08/21 07/08/21 04:53 04:53 WBC 5.1 RBC 3.01 L Hgb 9.5 L Hct 32.5 L MCV 108.0 H MCH 31.6 MCHC 29.2 L RDW 17.6 H Plt Count 225 MPV 11.2 H Neut % (Auto) 47.7 Lymph % (Auto) 37.8 Wetzel % (Auto) 8.4 Eos % (Auto) 5.7 Baso % (Auto) 0.4 Lymph # (Auto) 1.94 Wetzel # (Auto) 0.43 Eos # (Auto) 0.29 Baso # (Auto) 0.02 Absolute Neutrophils 2.45 Sodium 146 H Potassium 3.8 Chloride 112 H Carbon Dioxide 24 Anion Gap 10.0 BUN 6 Creatinine 0.6 GFR Calculation 110 Glucose 82 Calcium 9.4 Total Bilirubin 0.2 AST 75 H ALT 54 H Alkaline Phosphatase 142 H Total Protein 6.1 Albumin 2.7 L Globulin 3.4 Albumin/Globulin Ratio 0.8 L Discharge Plan Patient/Caregiver Discharge Instructions Activity: increase activity as tolerated Diet: Regular Diet Prescriptions: Continued levothyroxine 200 mcg capsule 200 mcg PO QDAY RF: 0 oxycodone 10 mg tablet 10 mg PO QID RF: 0 oxycodone 5 mg capsule 5 mg PO QDAY PRN (Reason: Pain) RF: 0 quetiapine 400 mg tablet 400 mg PO QHS RF: 0 pregabalin [Lyrica] 150 mg capsule 150 mg PO BID RF: 0 clonazepam 2 mg tablet 2 mg PO TID RF: 0 ibuprofen 800 mg tablet 800 mg PO .COMPLEX RF: 0 omeprazole 20 mg capsule,delayed release(DR/EC) 20 mg PO QDAY RF: 0 fluticasone propionate 50 mcg/actuation spray,suspension 50 mcg INTRANASAL DAILY RF: 0 cyclobenzaprine 5 mg tablet 5 mg PO QDAY RF: 0 docusate sodium 100 mg capsule 100 mg PO BID RF: 0 folic acid 800 mcg tablet 0.8 mg PO QDAY RF: 0 lithium carbonate 300 mg tablet extended release 300 mg PO BID RF: 0 magnesium oxide [MagOx] 400 mg (241.3 mg magnesium) tablet 400 mg PO QDAY RF: 0 meclizine 25 mg tablet 25 mg PO QDAY PRN (Reason: Dizziness) RF: 0 ondansetron 4 mg tablet,disintegrating 4 mg PO ONCE RF: 0 oxybutynin chloride 10 mg tablet extended release 24hr 10 mg PO QDAY RF: 0 potassium chloride 20 mEq tablet extended release 20 meq PO QDAY RF: 0 sennosides [senna] 8.6 mg tablet 8.6 mg PO ONCE PRN (Reason: Constipation) RF: 0 sumatriptan succinate 50 mg tablet 50 mg PO ONCE PRN (Reason: Headache) RF: 0 topiramate 50 mg tablet 50 mg PO BID RF: 0 torsemide 20 mg tablet 20 mg PO QDAY RF: 0 ascorbate calcium (vitamin C) 500 mg tablet 500 mg PO QDAY RF: 0 zinc 50 mg tablet 50 mg PO QDAY RF: 0 alendronate 70 mg tablet 70 mg PO MONTHLY RF: 0 escitalopram oxalate 20 mg tablet 20 mg PO DAILY RF: 0 Other Ambulatory Orders: Wound Care Instructions (CONT) Location: None Selected Ordered By: Colin Sanchez OT Discharge Order (Routine) Facility: [facility] - Location: [facility] Ordered By: Louis Anderson Physical Therapy at Discharge - General (Routine) Facility: [facility] - Location: [facility] Ordered By: Louis Anderson Follow Up Plan Follow up with: Brad Beasley MD [Primary Care Provider] - Allie Whitmore [Nurse Practitioner] - (Follow up in 5-7 days or as already scheduled for wound care) Patient Disposition: Xfer SNF Rehab Potential: Good I certify that the patient requires SNF services: Yes Overall status at discharge: patient is back to baseline Discharge Orders: Discharge Order (Routine); Ordered 07/08/21 Ordered By: Louis Anderson QUALITY VTE Deep Vein Thrombosis/Pulmonary Embolism Present on Admission: No
== END 2021-07-08 13:20 | DRG 689 ==
LOC: ED 15:02 → ICU 20:20
PROVIDERS: ADMIT Internal Medicine; ATTEND Internal Medicine